=== PATIENT | female | born 1930 | race Caucasian/White ===

== ENCOUNTER 2018-04-14 04:56 | Inpatient (IN) | payer OTHER ==
[2018-04-14] MEDS ORDERED: LEVALBUTEROL 1.25 MG/3 ML NEB ONE (05:47)
[2018-04-14] MEDS ORDERED: ACETAMINOPHEN 500 MG TAB ONE (05:48)
[2018-04-14] MEDS ORDERED: NA CHLORIDE 0.9% 500 ML ONE ×3 (05:48→07:50)
[2018-04-14 06:14] LABS: Absolute Lymphocytes (CBC) 0.6 K/uL (0.7-4.9); Absolute Monocytes 1.1 K/uL (0.1-1.3); Absolute Neutrophil 15.5 K/uL (1.8-8.0); Basophils % 0.2 % (0-1.3); Eosinophils % 0.5 % (0-4.4); Hematocrit 36.8 % (36.0-45.0); Lymphocytes % 3.5 % (15.3-44.8); MPV 7.3 fL (7.6-11.3); Monocytes % 6.3 % (3.3-12.3); RBC Red Blood Cell Count 4.26 M/uL (3.86-4.86)
[2018-04-14 06:15] LABS: Protime INR 1.23
[2018-04-14 06:26] LABS: ALT/SGPT 13 U/L (12-78); AST/SGOT 16 U/L (15-37); Albumin 3.1 g/dL (3.4-5.0); Alkaline Phosphatase 124 U/L (45-117); BUN Blood Urea Nitrogen 24 mg/dL (7-18); Bicarbonate 26 mmol/L (21-32); Bilirubin Direct 0.2 mg/dL (0-0.2); Bilirubin Total 0.6 mg/dL (0.2-1.0); Glucose Level 126 mg/dL (74-106); Lipase 153 U/L (73-393); Potassium 4.6 mmol/L (3.5-5.1); Protein, Total 7.3 g/dL (6.4-8.2); Sodium Level 134 mmol/L (136-145); Troponin (Emerg Dept Use Only) < 0.02 ng/mL (0.0-0.045)
[2018-04-14 06:44] LABS: Blood Morphology Comment NOT SEEN (NOT SEEN); Platelet Estimate ADEQ; Urine White Blood Cell Casts OK
[2018-04-14 06:55] LABS: Urine Bacteria <20 /HPF (<20); Urine Culture Reflex Order NOT NEEDED; Urine RBC <5 /HPF (NONE SEEN)
[2018-04-14] MEDS ORDERED: NA CHLORIDE 0.9% 250 ML ONE (06:57)
[2018-04-14] MEDS ORDERED: CEFTRIAXONE/SWI 1gm 1 GM/10 ML SYR ONE (06:57)
[2018-04-14] MEDS ORDERED: AZITHROMYCIN 500 MG INJ IVPB ONE (06:57)
[2018-04-14 07:06] LABS: Urine Blood TRACE (NEG); Urine Glucose NEGATIVE (NEG); Urine Protein NEGATIVE (NEG); Urine pH 6.5 (5.0-7.0)
--- NOTE | 2018-04-14 07:46 | ER ---
Nurse's Notes [facility] Name: Rachele Sahu Age: 87 yrs Sex: Female : 1930 Arrival Date: 04/14/2018 Time: 05:02 Bed 4 Private MD: Diagnosis: acute pneumonia;cough;Left side pneumonia;Sepsis Presentation: 04/14 05:03 Presenting complaint: EMS states: Patient woke up with chills this morning; Has had lp1 cough, congestion for a few days, thought it was just sinus congestion; Complaint of nausea, relieved with 4mg Zofran IV by EMS. Transition of care: [facility]. Onset of symptoms was April 14, 2018. Risk Assessment: Do you want to hurt yourself or someone else? Patient reports no desire to harm self or others. Care prior to arrival: Medication(s) given: zofran 4 mg, IV initiated. 20 GA, in the left antecubital area. 05:03 Method Of Arrival: EMS: [facility] lp1 05:03 Acuity: OLAMIDE 3 lp1 05:03 Acuity: OLAMIDE 2 lp1 05:16 Initial Sepsis Screen: Does the patient have a suspected source of infection? Yes: lp1 Productive cough/pneumonia. 05:16 Initial Sepsis Screen: Does the patient meet any 2 criteria? RR > 20 per min. HR > 90 lp1 bpm. Yes. Historical: - Allergies: 05:09 Hydrocodone-Acetaminophen; lp1 - Home Meds: 05:09 Seroquel 50 mg Oral tab nightly [Active]; lp1 - PMHx: 05:09 Anxiety; Hypertension; lp1 - Immunization history:: Adult Immunizations unknown. - Ebola Screening: : No symptoms or risks identified at this time. - Social history:: Smoking status: unknown. - Family history:: not pertinent. - Hospitalizations: : No recent hospitalization is reported. Screenin:58 Abuse screen: Denies threats or abuse. Denies injuries from another. Nutritional lp1 screening: No deficits noted. Tuberculosis screening: No symptoms or risk factors identified. Fall Risk Total Armenta Fall Scale indicates High Risk Score (45 or more points). Fall prevention measures have been instituted. Side Rails Up X 2 As available patient and family educated on Fall Prevention Program and Strategies. Assessment: 05:11 General: Appears in no apparent distress. Behavior is calm, cooperative, appropriate ao for age. Pain: Denies pain. Neuro: Level of Consciousness is awake, alert, Oriented to person, place, time, situation, Moves all extremities. Full function Speech is normal, Facial symmetry appears normal. Cardiovascular: Heart tones S1 S2 Capillary refill < 3 seconds. Respiratory: Reports shortness of breath cough that is productive, hacking, Airway is patent Respiratory effort is even, unlabored, Respiratory pattern is regular, symmetrical. GI: Abdomen is non-distended. : No signs and/or symptoms were reported regarding the genitourinary system. EENT: No signs and/or symptoms were reported regarding the EENT system. Derm: Skin is intact, Skin is pink, warm \T\ dry. normal, Skin temperature is warm. Musculoskeletal: Circulation, motion, and sensation intact. Range of motion: limited in all extremities. 06:13 Reassessment: Patient appears in no apparent distress at this time. Patient and/or ao family updated on plan of care and expected duration. Pain level reassessed. 07:13 Reassessment: Patient appears in no apparent distress at this time. Patient and/or jl7 family updated on plan of care and expected duration. Pain level reassessed. Patient is alert, oriented x 3, equal unlabored respirations, skin warm/dry/pink. Patient denies pain at this time. 07:35 Reassessment: Dr. Sotelo made aware of BP, see MAR for orders. jl7 08:14 Reassessment: Dr. Sotelo ordered Levophed to maintain a MAP of 65. Pt's BP increased jl7 when she fully woke up and was sitting in bed. [facility] ordered to hold Levophed at this time. 08:55 Reassessment: Levophed started at 5 mcg/min. jl7 09:20 Reassessment: Levophed increased to 8 mcg/min. jl7 Vital Signs: 05:07 BP 183 / 62; Pulse 130; Resp 23; Temp 100.6(O); Pulse Ox 94% on R/A; Weight 44.91 kg lp1 (R); Height 4 ft. 11 in. (149.86 cm); Pain 0/10; 06:13 BP 91 / 44; Pulse 122; Resp 19; Temp 98.9(O); Pulse Ox 95% ; Pain 0/10; ao 06:41 Temp 98.9; ao 07:13 BP 102 / 48; Pulse 112; Resp 16 S; Pulse Ox 91% on R/A; Pain 0/10; jl7 07:35 BP 82 / 37; Pulse 104; Resp 14 S; Pulse Ox 87% on R/A; jl7 07:43 Pulse Ox 92% on 2 lpm NC; jl7 07:55 BP 86 / 37; Pulse 102; Resp 15 S; Pulse Ox 97% on 2 lpm NC; jl7 08:13 BP 104 / 50; Pulse 106; Resp 14 S; Pulse Ox 97% on 2 lpm NC; jl7 08:45 BP 71 / 30; Pulse 90; Resp 16 S; Pulse Ox 98% on 2 lpm NC; jl7 09:23 BP 85 / 39; Pulse 90; Resp 16 S; Pulse Ox 98% on 2 lpm NC; jl7 09:30 BP 102 / 46; Pulse 88; Resp 16 S; Pulse Ox 99% on 2 lpm NC; jl7 05:07 Body Mass Index 20.00 (44.91 kg, 149.86 cm) lp1 ED Course: 05:02 Patient arrived in ED. lp1 05:04 Yared Sotelo MD is Attending Physician. wa 05:07 Triage completed. lp1 05:07 Arm band placed on left wrist. lp1 05:09 Bed in low position. Side rails up X2. secured entrance monitor on. Pulse ox on. NIBP on. lp1 05:11 Justen Nair RN is Primary Nurse. ao 05:33 X-ray completed. Portable x-ray completed in exam room. Patient tolerated procedure kw well. 05:41 Chest Single View XRAY In Process Unspecified. EDMS 07:01 CT Chest Abdomen Pelvis W/O Contrast In Process Unspecified. EDMS 07:07 Report given to Daniel RN. ao 07:13 Inserted saline lock: 20 gauge in left forearm, using aseptic technique. Blood jl7 collected. Inserted by GABO Campuzano. 07:44 Beatriz Weems MD is Hospitalizing Provider. wa 08:56 Inserted saline lock: 20 gauge in right forearm, using aseptic technique. bp 10:01 No provider procedures requiring assistance completed. Patient admitted, IV remains in jl7 place. intact, No redness/swelling at site. Administered Medications: 05:48 Drug: Acetaminophen 1000 mg Route: PO; ao 06:41 Follow up: Temp 98.9 ao 05:48 Drug: Xopenex (3) 1.25 mg Route: Inhalation; ao 06:41 Follow up: Response: No adverse reaction ao 05:48 Drug: NS 0.9% 500 ml Route: IV; Rate: bolus; Site: left antecubital; ao 06:30 Follow up: Response: No adverse reaction; IV Status: Completed infusion; IV Intake: jl7 500ml 06:41 Follow up: IV Intake: 500ml ao 06:41 Drug: NS 0.9% 500 ml Route: IV; Rate: bolus; Site: left forearm; ao 07:35 Follow up: Response: No adverse reaction; IV Status: Completed infusion; IV Intake: jl7 500ml 07:01 Drug: Rocephin - (cefTRIAXone) 2 grams Route: IVPB; Infused Over: 30 mins; Site: left ao forearm; 07:03 Follow up: Response: No adverse reaction; IV Status: Completed infusion jl7 07:01 Drug: Zithromax 500 mg Route: IVPB; Infused Over: 1 hrs; Site: left forearm; ao 08:01 Follow up: Response: No adverse reaction; IV Status: Completed infusion jl7 07:41 Drug: NS 0.9% 500 ml Route: IV; Rate: bolus; Site: left forearm; jl7 08:18 Follow up: IV Status: Completed infusion; IV Intake: 500ml jl7 08:55 Drug: Levophed (4 mg/250 mL D5W 4 mcg/min {Note: Administration started at 5 mcg/min.} jl7 Route: IV; Rate: calculated rate; Site: left forearm; 10:04 Follow up: IV Status: Infusion continued upon admission jl7 Intake: 06:30 IV: 500ml; Total: 500ml. jl7 06:41 IV: 500ml; Total: 1000ml. ao 07:35 IV: 500ml; Total: 1500ml. jl7 08:18 IV: 500ml; Total: 2000ml. jl7 Outcome: 07:45 Decision to Hospitalize by Provider. wa 10:01 Admitted to ICU accompanied by nurse, accompanied by dimitrios, via stretcher, room 6, on jl7 monitor, with chart, Report called to GABO Helms 10:01 Condition: stable 10:01 Discharge instructions given to patient, Instructed on the need for admit, Demonstrated understanding of instructions. 10:03 Patient left the ED. jl7 Signatures: Dispatcher [employer] EDLyubov Guthrie Laura, GABO RN lp1 Justen Nair RN RN Raman Golden RN RN jl7 Yared Sotelo MD MD wa Peltier, Brian RN RN bp Corrections: (The following items were deleted from the chart) 06:59 05:16 Initial Sepsis Screen: Does the patient have a suspected source of infection? ao lp1
--- NOTE | 2018-04-14 07:46 | EDPHYS ---
Physician Documentation [facility] Name: Rachele Sahu Age: 87 yrs Sex: Female : 1930 Arrival Date: 04/14/2018 Time: 05:02 Bed 4 Private MD: ED Physician Yared Sotelo HPI: 04/14 06:48 This 87 yrs old Female presents to ER via EMS with complaints of Cough, wa Nausea. 06:48 The patient or guardian reports cough, difficulty breathing, congestion. chills. Onset: wa The symptoms/episode began/occurred 1 week(s) ago, states waxes and wanes. Severity of symptoms: At their worst the symptoms were moderate, in the emergency department the symptoms are actually worse. Modifying factors: The symptoms are alleviated by nothing, the symptoms are aggravated by coughing. Associated signs and symptoms: Pertinent positives: fever, nausea, Pertinent negatives: chest pain, diarrhea, ear ache, vomiting. The patient has experienced similar episodes in the past, a few times. The patient has not recently seen a physician. Historical: - Allergies: 05:09 Hydrocodone-Acetaminophen; lp1 - Home Meds: 05:09 Seroquel 50 mg Oral tab nightly [Active]; lp1 - PMHx: 05:09 Anxiety; Hypertension; lp1 - Immunization history:: Adult Immunizations unknown. - Ebola Screening: : No symptoms or risks identified at this time. - Social history:: Smoking status: unknown. - Family history:: not pertinent. - Hospitalizations: : No recent hospitalization is reported. ROS: 06:50 Eyes: Negative for injury, pain, redness, and discharge, ENT: Negative for injury, wa pain, and discharge, Neck: Negative for injury, pain, and swelling, Back: Negative for injury and pain, : Negative for injury, bleeding, discharge, and swelling, MS/Extremity: Negative for injury and deformity, Skin: Negative for injury, rash, and discoloration, Neuro: Negative for headache, weakness, numbness, tingling, and seizure, Psych: Negative for depression, anxiety, suicide ideation, homicidal ideation, and hallucinations. 06:50 Constitutional: Positive for chills, fatigue, fever, malaise, Negative for poor PO intake, weight loss. 06:50 Cardiovascular: Negative for chest pain, edema, orthopnea, palpitations. 06:50 Respiratory: Positive for cough, with white sputum, dyspnea on exertion, shortness of breath, at rest. Negative for hemoptysis, orthopnea. 06:50 Abdomen/GI: Positive for nausea. 06:50 All other systems are negative. Exam: 06:51 Head/Face: Normocephalic, atraumatic. Eyes: Pupils equal round and reactive to light, wa extra-ocular motions intact. Lids and lashes normal. Conjunctiva and sclera are non-icteric and not injected. Cornea within normal limits. Periorbital areas with no swelling, redness, or edema. ENT: Nares patent. No nasal discharge, no septal abnormalities noted. Tympanic membranes are normal and external auditory canals are clear. Oropharynx with no redness, swelling, or masses, exudates, or evidence of obstruction, uvula midline. Mucous membranes moist. Neck: Trachea midline, no thyromegaly or masses palpated, and no cervical lymphadenopathy. Supple, full range of motion without nuchal rigidity, or vertebral point tenderness. No Meningismus. Chest/axilla: Normal chest wall appearance and motion. Nontender with no deformity. No lesions are appreciated. Abdomen/GI: Soft, non-tender, with normal bowel sounds. No distension or tympany. No guarding or rebound. No evidence of tenderness throughout. Back: No spinal tenderness. No costovertebral tenderness. Full range of motion. Skin: Warm, dry with normal turgor. Normal color with no rashes, no lesions, and no evidence of cellulitis. MS/ Extremity: Pulses equal, no cyanosis. Neurovascular intact. Full, normal range of motion. Neuro: Awake and alert, GCS 15, oriented to person, place, time, and situation. Cranial nerves II-XII grossly intact. Motor strength 5/5 in all extremities. Sensory grossly intact. Cerebellar exam normal. Normal gait. Psych: Awake, alert, with orientation to person, place and time. Behavior, mood, and affect are within normal limits. 06:51 Constitutional: The patient appears alert, noted coughing intermittently with sputum production 06:51 Cardiovascular: Rate: tachycardic, Rhythm: regular, Pulses: no pulse deficits are appreciated, Heart sounds: normal, Edema: is not appreciated, JVD: is not appreciated. 06:51 Respiratory: mild respiratory distress is noted, Respirations: normal, Breath sounds: coarse at level of mid-lung and bilaterally, Respiratory rate: tachypneic Vital Signs: 05:07 BP 183 / 62; Pulse 130; Resp 23; Temp 100.6(O); Pulse Ox 94% on R/A; Weight 44.91 kg lp1 (R); Height 4 ft. 11 in. (149.86 cm); Pain 0/10; 06:13 BP 91 / 44; Pulse 122; Resp 19; Temp 98.9(O); Pulse Ox 95% ; Pain 0/10; ao 06:41 Temp 98.9; ao 07:13 BP 102 / 48; Pulse 112; Resp 16 S; Pulse Ox 91% on R/A; Pain 0/10; jl7 07:35 BP 82 / 37; Pulse 104; Resp 14 S; Pulse Ox 87% on R/A; jl7 07:43 Pulse Ox 92% on 2 lpm NC; jl7 07:55 BP 86 / 37; Pulse 102; Resp 15 S; Pulse Ox 97% on 2 lpm NC; jl7 08:13 BP 104 / 50; Pulse 106; Resp 14 S; Pulse Ox 97% on 2 lpm NC; jl7 08:45 BP 71 / 30; Pulse 90; Resp 16 S; Pulse Ox 98% on 2 lpm NC; jl7 09:23 BP 85 / 39; Pulse 90; Resp 16 S; Pulse Ox 98% on 2 lpm NC; jl7 09:30 BP 102 / 46; Pulse 88; Resp 16 S; Pulse Ox 99% on 2 lpm NC; jl7 05:07 Body Mass Index 20.00 (44.91 kg, 149.86 cm) lp1 MDM: 05:04 Patient medically screened. sc 06:53 Differential Diagnosis: Bronchitis Influenza Upper Respiratory Infection Pharyngitis wa Viral Syndrome Pneumonia. 06:53 Data reviewed: vital signs, nurses notes, lab test result(s), EKG, radiologic studies. sc Test interpretation: by ED physician or midlevel provider: EKG: HR 125. sinus tach. interp by me. nml axis. no acute ischemic changes or dysrhythmia noted. Response to treatment: the patient's symptoms have mildly improved after treatment. 06:54 ED course: spepsis? fluid bolus. eval for source. reassess. sc 06:58 Test interpretation: by ED physician or midlevel provider: labs noted for wbc 17.3 UA negative. f;u screen negative. CXR: chronic interstitial markings. . ED course: fluids given 30cc/kg. IV abx given. . 07:42 Physician consultation: Beatriz Weems MD. Admission orders: after a detailed discussion of the patient's condition and case, the admit orders are written by me. 04/14 05:20 Order name: Basic Metabolic Panel; Complete Time: 06:56 sc 04/14 06:56 Interpretation: GFR 63. 04/14 05:20 Order name: Blood Culture Adult (2) 04/14 05:20 Order name: CBC with Diff; Complete Time: 06:56 04/14 05:20 Order name: Lactate; Complete Time: 06:57 sc 04/14 05:20 Order name: LFT's; Complete Time: 06:57 sc 04/14 05:20 Order name: Lipase; Complete Time: 06:57 sc 04/14 05:20 Order name: Procalcitonin; Complete Time: 06:57 sc 04/14 05:20 Order name: Protime (+inr); Complete Time: 06:22 sc 04/14 05:20 Order name: Troponin (emerg Dept Use Only); Complete Time: 06:57 sc 04/14 05:20 Order name: Urine Microscopic Only; Complete Time: 06:57 sc 04/14 05:20 Order name: Chest Single View XRAY; Complete Time: 08:11 sc 04/14 05:20 Order name: Flu; Complete Time: 06:57 sc 04/14 06:33 Order name: CBC Smear Scan; Complete Time: 06:56 EDMS 04/14 06:58 Order name: Urine Dipstick--Ancillary (enter results); Complete Time: 07:34 eb 04/14 05:20 Order name: Cardiac monitoring; Complete Time: 05:48 wa 04/14 05:20 Order name: EKG - Nurse/Tech; Complete Time: 05:48 wa 04/14 05:20 Order name: IV Saline Lock - Large Bore; Complete Time: 05:49 wa 04/14 05:20 Order name: Labs collected and sent; Complete Time: 05:49 04/14 05:20 Order name: O2 Per Protocol; Complete Time: 05:49 04/14 05:20 Order name: O2 Sat Monitoring; Complete Time: 05:49 sc 04/14 06:23 Order name: CT Chest Abdomen Pelvis W/O Contrast; Complete Time: 08:10 sc 04/14 07:24 Order name: EKG Electrocardiogram [facility] 04/14 05:20 Order name: Urine Dipstick-Ancillary (obtain specimen); Complete Time: 06:42 sc Administered Medications: 05:48 Drug: Acetaminophen 1000 mg Route: PO; ao 06:41 Follow up: Temp 98.9 ao 05:48 Drug: Xopenex (3) 1.25 mg Route: Inhalation; ao 06:41 Follow up: Response: No adverse reaction ao 05:48 Drug: NS 0.9% 500 ml Route: IV; Rate: bolus; Site: left antecubital; ao 06:30 Follow up: Response: No adverse reaction; IV Status: Completed infusion; IV Intake: jl7 500ml 06:41 Follow up: IV Intake: 500ml ao 06:41 Drug: NS 0.9% 500 ml Route: IV; Rate: bolus; Site: left forearm; ao 07:35 Follow up: Response: No adverse reaction; IV Status: Completed infusion; IV Intake: jl7 500ml 07:01 Drug: Rocephin - (cefTRIAXone) 2 grams Route: IVPB; Infused Over: 30 mins; Site: left ao forearm; 07:03 Follow up: Response: No adverse reaction; IV Status: Completed infusion jl7 07:01 Drug: Zithromax 500 mg Route: IVPB; Infused Over: 1 hrs; Site: left forearm; ao 08:01 Follow up: Response: No adverse reaction; IV Status: Completed infusion jl7 07:41 Drug: NS 0.9% 500 ml Route: IV; Rate: bolus; Site: left forearm; jl7 08:18 Follow up: IV Status: Completed infusion; IV Intake: 500ml jl7 08:55 Drug: Levophed (4 mg/250 mL D5W 4 mcg/min {Note: Administration started at 5 mcg/min.} jl7 Route: IV; Rate: calculated rate; Site: left forearm; 10:04 Follow up: IV Status: Infusion continued upon admission jl7 Disposition: 04/14/18 07:45 Hospitalization ordered by Beatriz Weems for Inpatient Admission. Preliminary diagnosis are acute pneumonia, cough, Left side pneumonia, Sepsis. - Bed requested for Intensive Care Unit. - Status is Inpatient Admission. jl7 - Condition is Fair. - Problem is new. - Symptoms have improved. UTI on Admission? No Critical care time excluding procedures: 08:11 Critical care time: Bedside Care: 15 minutes, Consultation: 7 minutes, Family wa Intervention: 10 minutes. Total time: 32 minutes Signatures: Dispatcher [employer] EDMS Jes Cyr RN RN dw Pena, Laura, RN RN lp1 Justen Nair RN RN ao Marinas, Patrick, NP RADIO COMMENTATOR pm1 Raman Acosta RN RN jl7 Yared Sotelo MD MD sc Snow Meek Corrections: (The following items were deleted from the chart) 08:12 07:45 Hospitalization Ordered by Beatriz Weems MD for Inpatient Admission. Preliminary sc diagnosis is acute pneumonia; cough. Bed requested for Telemetry/MedSurg (Inpatient). Status is Inpatient Admission. Condition is Fair. Problem is new. Symptoms have improved. UTI on Admission? No. sc 08:12 08:12 04/14/2018 07:45 Hospitalization Ordered by Beatriz Weems MD for Inpatient sc Admission. Preliminary diagnosis is acute pneumonia; cough; Left side pneumonia; Sepsis. Bed requested for Telemetry/MedSurg (Inpatient). Status is Inpatient Admission. Condition is Fair. Problem is new. Symptoms have improved. UTI on Admission? No. sc 08:39 08:12 04/14/2018 07:45 Hospitalization Ordered by Beatriz Weems MD for Inpatient Admission. Preliminary diagnosis is acute pneumonia; cough; Left side pneumonia; Sepsis. Bed requested for Telemetry/MedSurg (Inpatient). Status is Inpatient Admission. Condition is Fair. Problem is new. Symptoms have improved. UTI on Admission? No. sc 09:31 08:39 04/14/2018 07:45 Hospitalization Ordered by Beatriz Weems MD for Inpatient Admission. Preliminary diagnosis is acute pneumonia; cough; Left side pneumonia; Sepsis. Bed requested for Telemetry/MedSurg (Inpatient). Status is Inpatient Admission. Condition is Fair. Problem is new. Symptoms have improved. UTI on Admission? No. 09:31 09:31 04/14/2018 07:45 Hospitalization Ordered by Beatriz Weems MD for Inpatient Admission. Preliminary diagnosis is acute pneumonia; cough; Left side pneumonia; Sepsis. Bed requested for Intensive Care Unit. Status is Inpatient Admission. Condition is Fair. Problem is new. Symptoms have improved. UTI on Admission? No. eb 10:03 09:31 04/14/2018 07:45 Hospitalization Ordered by Beatriz Weems MD for Inpatient jl7 Admission. Preliminary diagnosis is acute pneumonia; cough; Left side pneumonia; Sepsis. Bed requested for Intensive Care Unit. Status is Inpatient Admission. Condition is Fair. Problem is new. Symptoms have improved. UTI on Admission? No. dw
--- NOTE | 2018-04-14 08:08 | RAD REPORT ---
EXAM DESCRIPTION: CT - Chest Abd Pelvis Wo Con - 04/14/2018 7:01 am CLINICAL HISTORY: Chest pain, cough and congestion, abdominal pain COMPARISON: CT chest September 2015, CT September 2010 TECHNIQUE: Axial 5 millimeter thick images of the chest, abdomen and pelvis were obtained without IV contrast. No oral contrast administered. All CT scans are performed using dose optimization technique as appropriate and may include automated exposure control or mA/KV adjustment according to patient size. FINDINGS: There is a baseline interstitial fibrotic pattern present. Bilateral mild bronchial wall t hickening seen throughout the lung coyne. There is minimal alveolar ground-glass opacities present i n the lingula of the left upper lobe. In the mid and lower left lower lobe patchy areas of alveolar o pacification are present. No dense consolidation or air bronchogram formation. Minimal opacities are present in the right upper and right middle lobes. In the medial base of the right lower lobe there i s an 18 millimeter focal soft tissue density (image 47/104). This is new from the 2015 comparison. Th is is probably part of an infectious/inflammatory process but does warrant monitoring. No pneumothorax or pleural effusion. No chest wall mass or abnormal axillary lymphadenopathy seen. Mediastinal and hilar regions show no mass or lymphadenopathy. No significant cardiac finding. No p ericardial effusion. Patient has a large hiatal hernia with approximately 50% of the stomach intratho racic. The liver and spleen show no suspicious findings. Along the superior margin body the pancreas there i s a cluster of cystic masses present. These are not new. Assessment is somewhat limited in the absenc e of IV contrast. No associated calcification. No peripancreatic edema or stranding. Cholecystectomy clips are present. No biliary tree dilatation. No hydronephrosis present. No renal parenchymal calcifications. No calcifications in the pelvis or ca lices. Left-sided parapelvic cysts are present. Patient has multiple phleboliths along the pelvic rufina or. There several calcifications in the left-side of the abdomen and pelvis in proximity to the urete r. None are confirmed to be within the ureter. No new or progressive adrenal finding. Urinary bladder is contracted limiting assessment. Uterus is absent. Ovaries are absent or atrophic. No adnexal mass . No dilatation of the large or small bowel. Moderate stool volume throughout the colon. No active chandrakant l process identified. Other than the hiatal hernia, the stomach is unremarkable. Presence of the brenda ia distorts the stomach precluding accurate assessment of the proximal stomach dover for mass or chuck calos wall thickening. No free air, free fluid or inflammatory stranding. No hernia, mass or bulky lymphadenopathy. Very advanced bony degenerative changes are present but no acute or pathologic bone process seen. Den se vascular calcifications are present. IMPRESSION: CT chest shows patchy pneumonia changes in the left lower lobe and lingula of the left u pper lobe. An approximately 2 centimeter focal density in the medial gutter right lung base is probably an infec tious/inflammatory process is well. However, this finding needs ongoing monitoring to exclude a devel oping mass. No acute bowel finding identified. No acute GI process seen. Clustered cystic masses along the superior margin body of the pancreas are not new from prior imaging but there does appear to be some slight growth since 2016. Malignancy is not excluded. A benign etio logy is favored given the relatively minimal growth between 2010 and 2019. No acute finding identifiable. Isodense masses and pyelonephritis are not excluded. Patient has a large hiatal hernia with 50% of the stomach intrathoracic. This is not new. Proximal st omach is distorted in contour limiting accurate assessment of the gastric dover.
[2018-04-14] MEDS ORDERED: NOREPINEPHRINE 4mg/D5W 250mL 4 MG/250 ML BAG IV ONE (08:10)
--- NOTE | 2018-04-14 08:10 | RAD REPORT ---
EXAM DESCRIPTION: RAD - Chest Single View - 04/14/2018 5:41 am CLINICAL HISTORY: Cough and congestion COMPARISON: September 2015 TECHNIQUE: AP portable chest image was obtained 0530 hours . FINDINGS: Patient has chronic interstitial lung disease as a baseline. This is accentuated by a slig htly shallow inspiratory effort. Interstitial and patchy alveolar opacities are present in the mid an d lower left lung field. Mild patchy interstitial opacities present in the right lung field. Trachea is midline. Failure or volume overload are not suspected. There is no measurable mass or dense consol idation. Moderately large hiatal hernia is present and stable. Heart and vasculature are normal. No measurable pleural effusion and no pneumothorax. No acute bony abnormality seen. No acute aortic findings suspected. IMPRESSION: Left lower lung field pneumonia superimposed on fibrosis. Probable patchy right lower lung field pneumonia changes. Failure and volume overload are not suspected.
[2018-04-14] MEDS ORDERED: ONDANSETRON 4 MG/2 ML VIAL IV PRN (09:39)
--- NOTE | 2018-04-14 11:06 | P.HP ---
Certification for Inpatient Patient admitted to: Inpatient With expected LOS: >2 Midnights Patient will require the following post-hospital care: None Practitioner: I am a practitioner with admitting privileges, knowledge of patient current condition, hospital course, and medical plan of care. Services: Services provided to patient in accordance with Admission requirements found in Title 42 Section 412.3 of the Code of Federal Regulations Patient History Date of Service: 04/14/18 Primary Care Provider: Dr Romero Reason for admission: Failed Outpt Therapy History of Present Illness: This is a 87-year-old female with no significant medical history who presented to the ER complaining of having shortness of breath, cough, congestion, chills at the house. Subjective fevers as well. T-max of 100.6 at home. Patient stated that she has been sick for about 6 weeks with this cough and congestion. She went to her primary care doctor's office who prescribed her antibiotics and she took it for total of 14 days. Patient had no improvement and thus he prescribed her different antibiotics. Patient without any buttocks for total of 7 days without any improvement as well. Patient then noticed that she was starting to have a cyst in the back and thus general surgery saw her and remove this cyst outpatient. Patient stated that since the past 6 weeks she has not been able to get her cough and shortness of breath resolved. Even after taking antibiotics she has still been continued to have chills at the house. No other complaints to offer at this time. In the ER patient was in mild distress with respiratory rate of 36, requiring pressor for blood pressure support. Patient was thus admitted to the hospital after a chest x-ray and CT scan were concerning for possible right lower lobe pneumonia. Allergies codeine [Codeine] Allergy (Intermediate, Verified 10/04/15 04:41) Nausea/Vomiting Sulfa (Sulfonamide Antibiotics) [Sulfa(Sulfonamide Antibiotics)] Allergy ( Unknown, Verified 10/04/15 04:41) Hives hydr Allergy (Uncoded 10/06/16 19:11) Unknown Hydrocodone-Acetaminop Allergy (Uncoded 02/10/17 21:02) Unknown Home Medications: Quetiapine [Seroquel] 25 mg PO BEDTIME 04/14/18 - Past Medical/Surgical History Diabetic: No -: Lichen Planus -: Anxiety -: shingles -: Hysterectomy -: Appendectomy -: Cholecystectomy - Family History Family History: Reviewed- Non-Contributory - Social History Smoking Status: Never smoker Smoking therapy provided: No Patient receptive to therapy: No Alcohol use: No CD- Drugs: No Caffeine use: Yes Place of Residence: Home Review of Systems 10-point ROS is otherwise unremarkable Physical Examination - Vital Signs Temperature: 98.9 F Blood Pressure: 128/77 Pulse: 101 Respirations: 21 Pulse Ox (%): 95 - Physical Exam General: Alert, In no apparent distress HEENT: Atraumatic, PERRLA, Mucous membr. moist/pink, EOMI, Sclerae nonicteric Neck: Supple, 2+ carotid pulse no bruit, No LAD, Without JVD or thyroid abnormality Respiratory: Normal air movement, Expiratory wheezes, Inspiratory wheezes Cardiovascular: Regular rate/rhythm, Normal S1 S2 Gastrointestinal: Normal bowel sounds, No tenderness Musculoskeletal: No tenderness Integumentary: No rashes Neurological: Normal gait, Normal speech, Normal strength at 5/5 x4 extr, Normal tone, Normal affect Lymphatics: No axilla or inguinal lymphadenopathy - Studies Laboratory Data (last 24 hrs) 04/14/18 05:50: PT 14.4 H, INR 1.23 04/14/18 05:50: WBC 17.3 H, Hgb 12.5, Hct 36.8, Plt Count 287 04/14/18 05:50: Sodium 134 L, Potassium 4.6, BUN 24 H, Creatinine 0.85, Glucose 126 H, Total Bilirubin 0.6, AST 16, ALT 13, Alkaline Phosphatase 124 H, Lipase 153 Microbiology Data (last 24 hrs): 04/14/18 05:30 Nasopharnyx Influenza Type A Antigen Screen - Final 04/14/18 05:30 Nasopharnyx Influenza Type B Antigen Screen - Final Assessment and Plan - Problems (Diagnosis) (1) Sepsis Current Visit: Yes Status: Acute Plan: Sepsis with acute shock requiring pressors at this time. Most likely secondary to pneumonia. Failed outpatient therapy with Bactrim and Augmentin -currently patient is on Levophed. Will try to wean off and start patient on fluids -patient started on IV Levaquin at this time -sputum culture and blood culture pending at this time -will followup culture here and deescalate antibiotic Qualifiers: Sepsis type: sepsis due to unspecified organism Qualified Code(s): A41.9 - Sepsis, unspecified organism (2) PNA (pneumonia) Current Visit: Yes Status: Chronic Plan: CT scan with right lower lobe pneumonia. Failed outpatient therapy -was started on IV Levaquin at this time. Was given Bactrim and Augmentin outpatient -sputum cultures pending at this time -pulmonology consulted. Awaiting recommendations at this time Qualifiers: Pneumonia type: due to unspecified organism Laterality: right Lung location: lower lobe of lung Qualified Code(s): J18.1 - Lobar pneumonia, unspecified organism (3) HTN (hypertension) Current Visit: No Status: Chronic Qualifiers: Hypertension type: essential hypertension Discharge Plan: Home Plan to discharge in: Greater than 2 days - Advance Directives Does patient have a Living Will: Yes Does patient have a Durable POA for Healthcare: No - Code Status/Comfort Care Code Status Assessed: Yes Critical Care: Yes
[2018-04-14] MEDS: INSULIN -REGULAR HUMAN 50 UNIT/0.5 ML ML SQ SCH ×3 (11:30→20:43)
[2018-04-14] MEDS: Levofloxacin 750mg IV 750 MG/150 ML BAG IV SCH (11:36)
[2018-04-14] MEDS: NA CHLORIDE 0.9% 1,000 ML IV SCH (11:36)
[2018-04-14] MEDS ORDERED: NA CHLORIDE 0.9% 1,000 ML IV SCH (12:00)
--- NOTE | 2018-04-14 12:45 | P.CNS ---
Date of Consult: 04/14/18 Primary Care Provider: Dr Romero Chief Complaint: Shortness of breath chest congestion History of Present Illness: Patient is 87 years of age has been sick for 6 weeks with failed outpatient therapy with antibiotics started complaining of worsening congestion then sinus with shortness of breath ended up here in the hospital patient was little hypotensive i and Levophed has been tapered off no prior history of cardiopulmonary complaints patient is never smoked, does not drink alcohol no medications apart from a small dose of Seroquel at night patient lives in assisted living chest CT scan shows a patchy pneumonia on the left side Allergies codeine [Codeine] Allergy (Intermediate, Verified 10/04/15 04:41) Nausea/Vomiting Sulfa (Sulfonamide Antibiotics) [Sulfa(Sulfonamide Antibiotics)] Allergy ( Unknown, Verified 10/04/15 04:41) Hives hydr Allergy (Uncoded 10/06/16 19:11) Unknown Hydrocodone-Acetaminop Allergy (Uncoded 02/10/17 21:02) Unknown Home Medications: Quetiapine [Seroquel] 25 mg PO BEDTIME 04/14/18 - Past Medical/Surgical History Diabetic: No -: Lichen Planus -: Anxiety -: shingles -: Hysterectomy -: Appendectomy -: Cholecystectomy - Social History Smoking Status: Unknown if ever smoked Alcohol use: No CD- Drugs: No Caffeine use: Yes Place of Residence: Home Review of Systems 10-point ROS is otherwise unremarkable Physical Examination Temp Pulse Resp BP Pulse Ox 98.9 F 93 H 19 89/44 L 94 04/14/18 11:06 04/14/18 11:15 04/14/18 11:15 04/14/18 11:15 04/14/18 11:15 General: Alert, In no apparent distress, Oriented x3 HEENT: Atraumatic Neck: Supple Respiratory: Clear to auscultation bilaterally Cardiovascular: No edema, Regular rate/rhythm Gastrointestinal: Normal bowel sounds, Soft and benign Laboratory Data (last 24 hrs) 04/14/18 05:50: PT 14.4 H, INR 1.23 04/14/18 05:50: WBC 17.3 H, Hgb 12.5, Hct 36.8, Plt Count 287 04/14/18 05:50: Sodium 134 L, Potassium 4.6, BUN 24 H, Creatinine 0.85, Glucose 126 H, Total Bilirubin 0.6, AST 16, ALT 13, Alkaline Phosphatase 124 H, Lipase 153 - Problems (1) PNA (pneumonia) Current Visit: Yes Status: Chronic Plan: Patient is 87 years of age previously healthy admitted with a 6 week history of sinus and chest congestion. Failed outpatient therapy with antibiotics came and was also hypotensive no other significant medical history does not take anything apart from a small dose of Seroquel at night to sleep chest CT scan shows some patchy changes on the left side of bleed and pneumonia patient has been weaned off Seroquel blood cultures are pending is currently on IV fluids pro calcitonin level is negative also ordered some sinus x-rays patient is and I dose of levofloxacin not at risk for any resistant organisms serum cortisol level low-dose Decadron patient's white count is elevated Qualifiers: Pneumonia type: due to unspecified organism Laterality: right Lung location: lower lobe of lung Qualified Code(s): J18.1 - Lobar pneumonia, unspecified organism
[2018-04-14] MEDS: DEXAMETHASONE 4 MG TAB PO SCH ×2 (14:40→20:43)
--- NOTE | 2018-04-14 15:12 | RAD REPORT ---
EXAM DESCRIPTION: RAD - Sinus 3/+ Views - 04/14/2018 2:46 pm FINDINGS: Three view sinus series performed. Hazy opacification over each maxillary sinus would lashanda sonia diffuse mucosal thickening. No air-fluid level detected. No sclerotic or expansile bony change. Nasal septum is midline.
[2018-04-14] MEDS: ENOXAPARIN 40 MG/0.4 ML SQ SCH (17:38)
[2018-04-14] MEDS ORDERED: D50W 25 GM/50 ML SYRINGE IV PRN (18:04)
[2018-04-14] MEDS ORDERED: GLUCAGON 1 MG/VIAL IM PRN (18:04)
[2018-04-14] MEDS: QUETIAPINE 25 MG TAB PO SCH (20:42)
[2018-04-14] MEDS ORDERED: QUETIAPINE 25 MG TAB PO SCH (21:00)
--- NOTE | 2018-04-14 22:30 | EKG ---
Test Date: 2018-04-14 Test Time: 06:00:55 Student Financial Aid Manager: SAAD MEASUREMENT RESULTS: Intervals: Rate: 125 KS: 200 QRSD: 72 QT: 308 QTc: 444 [place]: P: [place]: 200 QRS: 62 T: 39 INTERPRETIVE STATEMENTS: Sinus tachycardia Otherwise normal ECG Compared to ECG 10/05/2015 05:28:32 Sinus bradycardia no longer present Sinus arrhythmia no longer present First degree AV block no longer present Electronically Signed On 04-14-18 22:28:00 [employer]OLOG[employer] by Antonio Lang
[2018-04-14] MEDS ORDERED: METHYLPREDNISOLONE 125 MG INJ IV STA (23:00)
[2018-04-15] MEDS: NA CHLORIDE 0.9% 1,000 ML IV SCH (03:51)
[2018-04-15 05:53] LABS: Absolute Lymphocytes (CBC) 0.5 K/uL (0.7-4.9); Absolute Monocytes 0.1 K/uL (0.1-1.3); Absolute Neutrophil 14.6 K/uL (1.8-8.0); Basophils % 0.1 % (0-1.3); Hematocrit 31.6 % (36.0-45.0); MPV 7.6 fL (7.6-11.3); Monocytes % 0.8 % (3.3-12.3)
[2018-04-15 06:06] VITALS: BMI 21.4
[2018-04-15 06:08] LABS: Albumin 2.4 g/dL (3.4-5.0); Bilirubin Total 0.2 mg/dL (0.2-1.0); Magnesium 2.1 mg/dL (1.8-2.4); Phosphorus 2.9 mg/dL (2.5-4.9); Protein, Total 6.1 g/dL (6.4-8.2)
[2018-04-15] MEDS: INSULIN -REGULAR HUMAN 50 UNIT/0.5 ML ML SQ SCH ×2 (07:30→11:30)
[2018-04-15] MEDS: DEXAMETHASONE 4 MG TAB PO SCH ×2 (08:40→22:34)
--- NOTE | 2018-04-15 10:13 | P.PN ---
Subjective Date of Service: 04/15/18 Primary Care Provider: Dr Romero Chief Complaint: Shortness of breath chest congestion Subjective: Improving (Patient is doing better is complaining of nasal symptoms nasal congestion no prior history) Review of Systems Unremarkable Physical Examination - Vital Signs Temperature: 97.8 F Blood Pressure: 118/50 Pulse: 98 Respirations: 23 Pulse Ox (%): 94 - Physical Exam General: Alert, Oriented x3 HEENT: Atraumatic Neck: Supple Respiratory: Clear to auscultation bilaterally Cardiovascular: No edema, Regular rate/rhythm - Studies Microbiology Data (last 24 hrs): 04/14/18 05:30 Nasopharnyx Influenza Type A Antigen Screen - Final 04/14/18 05:30 Nasopharnyx Influenza Type B Antigen Screen - Final Assessment & Plan - Problems (Diagnosis) (1) PNA (pneumonia) Current Visit: Yes Status: Chronic Plan: Patient is clinically doing 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 Cortisol level is normal continue with low-dose steroids can Dc IV fluids possible discharge on low-dose prednisone with a for Flonase cultures are negative Qualifiers: Pneumonia type: due to unspecified organism Laterality: right Lung location: lower lobe of lung Qualified Code(s): J18.1 - Lobar pneumonia, unspecified organism
[2018-04-15] MEDS: Levofloxacin 750mg IV 750 MG/150 ML BAG IV SCH (11:00)
[2018-04-15] MEDS: FLUTICASONE 50MCG NASAL SPRAY NAS SCH (11:11)
--- NOTE | 2018-04-15 11:33 | P.PN ---
Subjective Date of Service: 04/15/18 Primary Care Provider: Dr Romero Chief Complaint: Shortness of breath chest congestion Subjective: No C/O voiced, Tolerating diet, Ambulating, Improving, Doing well Review of Systems 10-point ROS is otherwise unremarkable Physical Examination - Vital Signs Temperature: 97.8 F Blood Pressure: 118/50 Pulse: 98 Respirations: 23 Pulse Ox (%): 94 - Physical Exam General: Alert, In no apparent distress HEENT: Atraumatic, PERRLA, EOMI Neck: Supple, JVD not distended Respiratory: Normal air movement, Rhonchi/gurgles Cardiovascular: Regular rate/rhythm, Normal S1 S2 Gastrointestinal: Normal bowel sounds, No tenderness Musculoskeletal: No tenderness Integumentary: No rashes Neurological: Normal speech, Normal tone, Normal affect Lymphatics: No axilla or inguinal lymphadenopathy - Studies Microbiology Data (last 24 hrs): 04/14/18 05:30 Nasopharnyx Influenza Type A Antigen Screen - Final 04/14/18 05:30 Nasopharnyx Influenza Type B Antigen Screen - Final Medications List Reviewed: Yes Assessment And Plan - Current Problems (Diagnosis) (1) Sepsis Current Visit: Yes Status: Acute Plan: Sepsis with acute shock requiring pressors at this time. Most likely secondary to pneumonia. Failed outpatient therapy with Bactrim and Augmentin -Patient weaned off levaphed now. BP stable now. DC fluids now -IV levaquin changed to PO now -sputum culture and blood culture pending at this time -will followup culture here and deescalate antibiotic Qualifiers: Sepsis type: sepsis due to unspecified organism Qualified Code(s): A41.9 - Sepsis, unspecified organism (2) PNA (pneumonia) Current Visit: Yes Status: Chronic Plan: CT scan with right lower lobe pneumonia. Failed outpatient therapy -Was given Bactrim and Augmentin outpatient -CAP guidelines for Post influenza patient to be treated with Levaquin 750mg IV which patient received yesterday. Switched to PO levaquin now with improvement in symptoms -sputum cultures pending at this time -pulmonology consulted. Qualifiers: Pneumonia type: due to unspecified organism Laterality: right Lung location: lower lobe of lung Qualified Code(s): J18.1 - Lobar pneumonia, unspecified organism (3) HTN (hypertension) Current Visit: No Status: Chronic Qualifiers: Hypertension type: essential hypertension Discharge Plan: Home Plan to discharge in: 48 Hours - Code Status/Comfort Care Code Status Assessed: Yes Critical Care: No
[2018-04-15] MEDS: levoFLOXacin 500 MG TAB PO SCH (12:27)
[2018-04-15] MEDS: ALBUTEROL 2.5 MG/3 ML NEB SOL NEB SCH ×2 (14:38→20:00)
[2018-04-15] MEDS: ENOXAPARIN 40 MG/0.4 ML SQ SCH (16:47)
[2018-04-15] MEDS: QUETIAPINE 25 MG TAB PO SCH (22:34)
[2018-04-16] MEDS: ALBUTEROL 2.5 MG/3 ML NEB SOL NEB SCH ×2 (02:00→07:50)
[2018-04-16 05:27] LABS: Absolute Lymphocytes (CBC) 0.5 K/uL (0.7-4.9); Absolute Monocytes 0.5 K/uL (0.1-1.3); Absolute Neutrophil 13.8 K/uL (1.8-8.0); Basophils % 0.2 % (0-1.3); Hematocrit 28.6 % (36.0-45.0); Lymphocytes % 3.4 % (15.3-44.8); MPV 7.3 fL (7.6-11.3); Monocytes % 3.4 % (3.3-12.3); RBC Red Blood Cell Count 3.27 M/uL (3.86-4.86)
[2018-04-16 06:01] LABS: Albumin 2.5 g/dL (3.4-5.0); Bilirubin Total 0.4 mg/dL (0.2-1.0); Potassium 4.7 mmol/L (3.5-5.1); Protein, Total 5.9 g/dL (6.4-8.2)
[2018-04-16] MEDS: DEXAMETHASONE 4 MG TAB PO SCH ×2 (09:29→21:18)
[2018-04-16] MEDS: FLUTICASONE 50MCG NASAL SPRAY NAS SCH (09:29)
[2018-04-16] MEDS: METOPROLOL TAR 25 MG TAB PO SCH ×2 (09:30→17:05)
[2018-04-16] MEDS: levoFLOXacin 500 MG TAB PO SCH (09:30)
--- NOTE | 2018-04-16 12:33 | P.PN ---
Subjective Date of Service: 04/16/18 Primary Care Provider: Dr Romero Chief Complaint: Shortness of breath chest congestion Patient seen and examined at bedside with RN. Chart reviewed. Case discussed with pulmonology. Overnight patient had episode of atrial fibrillation with RVR versus SVT with heart rate of 1 10-130. Patient however remained asymptomatic during that time. Patient states that she has not been able to sleep at night due to a lot of pressure moving around on the floor. Patient also is upset that she is not able to go home today. Review of Systems 10-point ROS is otherwise unremarkable Physical Examination - Vital Signs Temperature: 97.9 F Blood Pressure: 130/60 Pulse: 82 Respirations: 18 Pulse Ox (%): 95 - Physical Exam General: Alert, In no apparent distress HEENT: Atraumatic, PERRLA, EOMI Neck: Supple, JVD not distended Respiratory: Normal air movement, Expiratory wheezes, Inspiratory wheezes Cardiovascular: Normal S1 S2, Irregular heart rate/rhythm Gastrointestinal: Normal bowel sounds, No tenderness Musculoskeletal: No tenderness Integumentary: No rashes Neurological: Normal speech, Normal tone, Normal affect Lymphatics: No axilla or inguinal lymphadenopathy - Studies Medications List Reviewed: Yes Assessment And Plan - Current Problems (Diagnosis) (1) Sepsis Current Visit: Yes Status: Acute Plan: Sepsis with acute shock requiring pressors at this time. Most likely secondary to pneumonia. Failed outpatient therapy with Bactrim and Augmentin -hemodynamically stable -on p.o. Levaquin -sputum culture and blood culture pending at this time -will followup culture here and deescalate antibiotic Qualifiers: Sepsis type: sepsis due to unspecified organism Qualified Code(s): A41.9 - Sepsis, unspecified organism (2) PNA (pneumonia) Current Visit: Yes Status: Chronic Plan: CT scan with right lower lobe pneumonia. Failed outpatient therapy -Was given Bactrim and Augmentin outpatient -CAP guidelines for Post influenza patient to be treated with Levaquin 750mg IV which patient received yesterday. Switched to PO levaquin now with improvement in symptoms -sputum cultures pending at this time -pulmonology consulted. Qualifiers: Pneumonia type: due to unspecified organism Laterality: right Lung location: lower lobe of lung Qualified Code(s): J18.1 - Lobar pneumonia, unspecified organism (3) HTN (hypertension) Current Visit: No Status: Chronic Qualifiers: Hypertension type: essential hypertension (4) Tachycardia Current Visit: No Status: Acute Plan: Most likely secondary to albuterol versus stressful -patient switched from albuterol to Xopenex at this time -patient also asked to do stress relieving exercises then allowed to rest today Discharge Plan: Home Plan to discharge in: 24 Hours - Code Status/Comfort Care Code Status Assessed: Yes Critical Care: No
[2018-04-16] MEDS: LEVALBUTEROL 1.25 MG/3 ML NEB NEB SCH ×2 (13:40→20:00)
[2018-04-16] MEDS: ENOXAPARIN 40 MG/0.4 ML SQ SCH (17:04)
[2018-04-16] MEDS: QUETIAPINE 25 MG TAB PO SCH (22:16)
[2018-04-17] MEDS: LEVALBUTEROL 1.25 MG/3 ML NEB NEB SCH ×4 (02:00→20:05)
[2018-04-17 04:55] LABS: Absolute Lymphocytes (CBC) 0.6 K/uL (0.7-4.9); Absolute Monocytes 0.7 K/uL (0.1-1.3); Absolute Neutrophil 10.8 K/uL (1.8-8.0); Basophils % 0.1 % (0-1.3); Lymphocytes % 4.6 % (15.3-44.8); MPV 7.6 fL (7.6-11.3); Monocytes % 5.6 % (3.3-12.3); RBC Red Blood Cell Count 3.41 M/uL (3.86-4.86)
[2018-04-17 05:05] LABS: Albumin 2.7 g/dL (3.4-5.0); Bilirubin Total 0.2 mg/dL (0.2-1.0); Potassium 4.5 mmol/L (3.5-5.1); Protein, Total 6.1 g/dL (6.4-8.2)
--- NOTE | 2018-04-17 05:43 | P.PN ---
Date of Service: 04/17/18 Multiple episodes of SVT-nonsustained; increased lopressor dose
[2018-04-17] MEDS: METOPROLOL TAR 25 MG TAB PO SCH ×2 (05:47→17:41)
[2018-04-17] MEDS ORDERED: METOPROLOL TAR 25 MG TAB PO SCH ×2 (06:00)
[2018-04-17] MEDS: DEXAMETHASONE 4 MG TAB PO SCH ×2 (08:49→20:32)
[2018-04-17] MEDS: levoFLOXacin 500 MG TAB PO SCH (08:49)
[2018-04-17] MEDS: FLUTICASONE 50MCG NASAL SPRAY NAS SCH (08:58)
[2018-04-17] MEDS ORDERED: VANCOMYCIN/NS 1 gm 1 GM/250 ML BAG IV SCH (10:00)
[2018-04-17 14:17] LABS: Magnesium 2.2 mg/dL (1.8-2.4)
[2018-04-17] MEDS: ENOXAPARIN 40 MG/0.4 ML SQ SCH (17:41)
--- NOTE | 2018-04-17 17:58 | P.PN ---
Subjective Date of Service: 04/17/18 Primary Care Provider: Dr Romero Chief Complaint: Shortness of breath chest congestion Subjective: Improving SHE IS FEELING BETTER. DR NEGRO HAS GIVEN STEROIDS TO HER. SHE FAILED OP AUGMENTIN AND LEVAQUIN. WE JUST FOUND HER TO HAVE MRSA IN SPUTUM. SHE IS NOW ON VANCOMYCIN. THIS CAN BE A TRUE ORGANISM FOR HER SHE FAILED TO IMPROVE ON TWO ORAL ABX. Review of Systems 10-point ROS is otherwise unremarkable General: Weakness, Malaise Respiratory: Cough Physical Examination - Vital Signs Temperature: 97.8 F Blood Pressure: 156/76 Pulse: 78 Respirations: 18 Pulse Ox (%): 96 - Physical Exam General: Alert, Mild distress HEENT: Atraumatic, PERRLA, EOMI Neck: Supple, JVD not distended Respiratory: Clear to auscultation bilaterally, Normal air movement Cardiovascular: Regular rate/rhythm, Normal S1 S2 Gastrointestinal: Normal bowel sounds, No tenderness Musculoskeletal: No tenderness Integumentary: No rashes Neurological: Normal speech, Normal tone, Normal affect Lymphatics: No axilla or inguinal lymphadenopathy - Studies Medications List Reviewed: Yes Assessment And Plan - Current Problems (Diagnosis) (1) MRSA (methicillin resistant staphylococcus aureus) pneumonia Current Visit: Yes Status: Acute Plan: IV VANCOMYCIN PICC LINE IV ABX FOR 10 DAYS .
[2018-04-17] MEDS: QUETIAPINE 25 MG TAB PO SCH (20:31)
[2018-04-18] MEDS: LEVALBUTEROL 1.25 MG/3 ML NEB NEB SCH ×4 (02:00→21:00)
[2018-04-18] MEDS: METOPROLOL TAR 25 MG TAB PO SCH ×2 (05:25→17:16)
[2018-04-18 07:22] LABS: Absolute Monocytes 0.7 K/uL (0.1-1.3); Absolute Neutrophil 8.2 K/uL (1.8-8.0); Basophils % 0.2 % (0-1.3); Eosinophils % 0.1 % (0-4.4); Hematocrit 32.1 % (36.0-45.0); MPV 7.4 fL (7.6-11.3); Monocytes % 6.9 % (3.3-12.3); RBC Red Blood Cell Count 3.68 M/uL (3.86-4.86)
[2018-04-18 07:56] LABS: Anisocytosis 2+; Blood Morphology Comment NOTED (NOT SEEN); Platelet Estimate ADEQ; Urine White Blood Cell Casts OK
[2018-04-18] MEDS: FLUTICASONE 50MCG NASAL SPRAY NAS SCH (08:11)
[2018-04-18] MEDS: levoFLOXacin 500 MG TAB PO SCH (08:11)
[2018-04-18] MEDS: VANCOMYCIN/NS 1 gm 1 GM/250 ML BAG IV SCH (09:32)
--- NOTE | 2018-04-18 10:00 | RAD REPORT ---
EXAM DESCRIPTION: RAD - Chest Single View - 04/18/2018 12:19 am CLINICAL HISTORY: 7 years Female, PICC Placement COMPARISON: CT chest abdomen and pelvis without contrast dated April 14, 2018 FINDINGS: Appropriately placed upper extremity PICC terminating in the mid SVC. No focal lung consolidation. No pleural effusion. No pneumothorax. Cardiomegaly with venous congestion and interstitial edema. No acute osseous abnormality. IMPRESSION: Appropriately placed right upper extremity PICC. Cardiomegaly, interstitial edema and venous congestion. Multifocal pneumonia is not excluded. Electronically signed by: Tae Mars DO 04/18/2018 12:24 AM CONSTRUCTION ASSISTANT Due to temporary technical issues with the PACS/Fluency reporting system, reports are being signed by the in house radiologist as a courtesy to ensure prompt reporting. The interpreting radiologist is f ully responsible for the content of the report.
[2018-04-18] MEDS: CEFTAZIDIME IV SCH ×3 (12:53→23:45)
[2018-04-18] MEDS ORDERED: CEFTAZIDIME 1 GM VIAL IV SCH (17:00)
[2018-04-18] MEDS: ENOXAPARIN 40 MG/0.4 ML SQ SCH (17:14)
--- NOTE | 2018-04-18 18:11 | P.PN ---
Subjective Date of Service: 04/18/18 Primary Care Provider: Dr Romero Chief Complaint: Shortness of breath chest congestion Subjective: Improving SHE IS FEELING BETTER. DR NEGRO HAS GIVEN STEROIDS TO HER. SHE FAILED OP AUGMENTIN AND LEVAQUIN. WE JUST FOUND HER TO HAVE MRSA IN SPUTUM. SHE IS NOW ON VANCOMYCIN. THIS CAN BE A TRUE ORGANISM FOR HER SHE FAILED TO IMPROVE ON TWO ORAL ABX. SHE IS A LOT BETTER. DAUGHTER BEDSIDE. I ANSWERED A FEW QUESTIONS ABOUT PLAN. WE HAVE TO WAIT FOR [employer] TO APPROVE TWO ABX. Review of Systems 10-point ROS is otherwise unremarkable General: Weakness, Malaise Physical Examination - Vital Signs Temperature: 99 F Blood Pressure: 139/63 Pulse: 71 Respirations: 16 Pulse Ox (%): 96 - Physical Exam General: Alert, In no apparent distress, Cooperative, Cachectic HEENT: Atraumatic, PERRLA, EOMI Neck: Supple, JVD not distended Respiratory: Clear to auscultation bilaterally, Normal air movement Cardiovascular: Regular rate/rhythm, Normal S1 S2 Gastrointestinal: Normal bowel sounds, No tenderness Musculoskeletal: No tenderness Integumentary: No rashes Neurological: Normal speech, Normal tone, Normal affect Lymphatics: No axilla or inguinal lymphadenopathy - Studies Medications List Reviewed: Yes Assessment And Plan - Current Problems (Diagnosis) (1) MRSA (methicillin resistant staphylococcus aureus) pneumonia Current Visit: Yes Status: Acute Plan: IV VANCOMYCIN PICC LINE IV ABX FOR 10 DAYS . CLIINICALLY BETTER INTERMEDIATE S. TO VANCOMYCIN BUT IT HAS WORKED GREAT FOR HER. ADD FORTAZ FOR SECOND BACTERIA GROWING.
[2018-04-18] MEDS: QUETIAPINE 25 MG TAB PO SCH (23:44)
[2018-04-19] MEDS: LEVALBUTEROL 1.25 MG/3 ML NEB NEB SCH ×3 (02:00→13:05)
[2018-04-19] MEDS: METOPROLOL TAR 25 MG TAB PO SCH ×2 (05:21→15:01)
[2018-04-19] MEDS: FLUTICASONE 50MCG NASAL SPRAY NAS SCH (09:00)
[2018-04-19] MEDS: CEFTAZIDIME IV SCH ×2 (09:40→17:00)
--- NOTE | 2018-04-19 17:42 | P.DS ---
Admission Date: 04/14/18 Discharge Date: 04/19/18 Primary Care Provider: Dr Romero Disposition: TRANSFER TO [facility]USTODIAL Discharge Condition: FAIR Reason for Admission: Shortness of breath chest congestion - Problems (1) MRSA (methicillin resistant staphylococcus aureus) pneumonia Current Visit: Yes Status: Acute Hospital Course: MS. MONTANEZ COMES WITH SEPSIS, COUGH, CONGESTION WAS FOUND TO HAVE PNEUMONIA. SHE FAILED AUGMENTIN AND LEVAQUIN OUTPATIENT. SHE WAS FIRST GIVEN STEROIDS BY DR. NEGRO THINKING OF NON INFECTIOUS ETIOLOGY BUT LATER SHE GREW MRSA AND SO I ADDED VANCOMYCIN AND FORTAZ FOR ANOTHER BACTERIA THAT WAS NOT SENSITIVE TO LEVAQUIN. SHE IS DOING GREAT, HAS NO SYMPTOMS NOW. SHE WANTS TO STAY HERE FOR 10 DAYS OF ANTIBIOTICS. I EXPLAINED TO HER THAT WHEN PATIENT IS STABLE FOR OUTPATIENT CARE WE HAVE TO DISCHARGE AND SEND HER TO LOWER LEVEL OF CARE PER MEDICARE AND HOSPITAL HOSPITAL DEPENDS ON DRG. BOTH HER AND DAUGHTER WERE NOT HAPPY. I TOLD THEM THAT IT IS NOT A DOCTOR'S DECISION TO LET PATIENTS STAY FOR 2 WEEKS IN THE HOSPITAL EVEN IF THE PATIENT IS TOTALLY ASYMPTOMATIC. DAUGHTER HAD MORE QUESTIONS ABOUT HOW SECOND BACTERIA SHOWED UP. I EXPLAINED TO HER HOW CULTURE IS DONE ON YUNG DISH AND THEN SENSITIVITY IS TESTED TO SEE WHAT ANTIBIOTIC WILL WORK. SHE ALSO HAD QUESTION IF I CAN FINISH ANTIBIOTICS FASTER SO SHE CAN DO HOME AND NOT TO NH. I SAID NO. SHE SAYS IT IS DIFFICULT TO CONVINCE MOTHER FOR NH BUT SHE WILL TRY. I ALSO ASKED ASSISTANT PROSECUTING ATTORNEY TO EXPLAIN HOW DRG, CMS AND HOSPITAL STAYS WORK. Vital Signs/Physical Exam: Temp Pulse Resp BP Pulse Ox 97.1 F 65 18 140/60 98 04/19/18 16:00 04/19/18 16:00 04/19/18 16:00 04/19/18 16:00 04/19/18 16:00 General: Alert, In no apparent distress HEENT: Atraumatic, PERRLA, EOMI Neck: Supple, JVD not distended Respiratory: Clear to auscultation bilaterally, Normal air movement Cardiovascular: Regular rate/rhythm, Normal S1 S2 Gastrointestinal: Normal bowel sounds, No tenderness Musculoskeletal: No tenderness Integumentary: No rashes Neurological: Normal speech, Normal tone, Normal affect Lymphatics: No axilla or inguinal lymphadenopathy Laboratory Data at Discharge: WBC 9.9 K/uL (4.3-10.9) D 04/18/18 06:57 Hgb 10.7 g/dL (12.0-15.0) L 04/18/18 06:57 Hct 32.1 % (36.0-45.0) L 04/18/18 06:57 Plt Count 298 K/uL (152-406) 04/18/18 06:57 PT 14.4 SECONDS (9.5-12.5) H 04/14/18 05:50 INR 1.23 04/14/18 05:50 Sodium 138 mmol/L (136-145) 04/17/18 03:48 Potassium 4.5 mmol/L (3.5-5.1) 04/17/18 03:48 BUN 35 mg/dL (7-18) H 04/17/18 03:48 Creatinine 0.91 mg/dL (0.55-1.3) 04/18/18 06:57 Glucose 154 mg/dL (74-106) H 04/17/18 03:48 Phosphorus 2.9 mg/dL (2.5-4.9) 04/15/18 04:59 Magnesium 2.2 mg/dL (1.8-2.4) 04/17/18 10:10 Total Bilirubin 0.2 mg/dL (0.2-1.0) 04/17/18 03:48 AST 15 U/L (15-37) 04/17/18 03:48 ALT 17 U/L (12-78) 04/17/18 03:48 Alkaline Phosphatase 95 U/L (45-117) 04/17/18 03:48 Lipase 153 U/L (73-393) 04/14/18 05:50 Home Medications: Quetiapine [Seroquel*] 50 mg PO BEDTIME 04/14/18 Metoprolol Tartrate [Lopressor*] 25 mg PO Q12HR 6AM AND 6PM tab 04/19/18 Patient Discharge Instructions: [facility] TO CONTINUE ANTIBIOTICS RX GIVEN. THEY CAN CALL ME IF ANY CLARIFICATIONS NEEDED. Diet: Regular
[2018-04-19] MEDS: ENOXAPARIN 40 MG/0.4 ML SQ SCH (17:54)
--- NOTE | 2018-04-19 19:09 | EKG ---
Test Date: 2018-04-19 Test Time: 15:06:59 Raw Stock Dyeing Machine Tender: DENISHA MEASUREMENT RESULTS: Intervals: Rate: 74 CT: 210 QRSD: 76 QT: 364 QTc: 404 [place]: P: 61 CT: 210 QRS: 49 T: 39 INTERPRETIVE STATEMENTS: Sinus rhythm with 1st degree AV block Cannot rule out Anterior infarct, age undetermined Abnormal ECG Compared to ECG 04/14/2018 06:00:55 First degree AV block now present Myocardial infarct finding now present Sinus tachycardia no longer present Electronically Signed On 04-19-18 19:08:10 THERMOMETER MAKER by Jorge Luis Cantrell
[2018-04-19] MEDS: QUETIAPINE 25 MG TAB PO SCH (20:37)
[2018-04-19] MEDS: METOPROLOL TAR 50 MG TAB PO SCH (20:38)
[2018-04-19] MEDS: VANCOMYCIN/NS 1 gm 1 GM/250 ML BAG IV SCH (20:39)
[2018-04-20] MEDS: CEFTAZIDIME IV SCH ×2 (00:20→09:07)
[2018-04-20] MEDS: METOPROLOL TAR 50 MG TAB PO SCH (06:00)
[2018-04-20] MEDS ORDERED: METOPROLOL TAR 25 MG TAB PO ONE (06:42)
[2018-04-20] MEDS: FLUTICASONE 50MCG NASAL SPRAY NAS SCH (09:09)
--- NOTE | 2018-04-20 10:39 | CON ---
Date of Consultation: 04/20/2018 The patient was admitted on 04/14/2018 for sepsis. We saw the patient on 04/20/2018 because of atria l tachycardia. Admitting Physician: Keo Romero M.D. Consulting Physician: Antonio Lang M.D. History Of Present Illness: Ms. Sahu is an 87-year-old woman with history of anxiety and hyperte nsion, only takes Seroquel at home, admitted with sepsis on 04/14/2018. While she was here on teleme try, she had an episode of tachycardia that appears to be most likely an atrial flutter. No cardiac symptoms reported. Past Medical History: As stated above. Allergies: INCLUDE SULFA AND CODEINE. Review of Systems: Negative. Social History: Negative. Family History: Negative. Physical Examination: Vital Signs: Stable. Afebrile. Sinus rhythm. HEENT: Negative. Neck: Supple with no bruit. Chest: Clear to auscultation and percussion. Cardiac: Revealed a regular rhythm and rate. No murmurs, gallops, or rubs. Abdomen: Benign. Extremities: Revealed no clubbing, cyanosis, or edema. Diagnostic Data: Fairly unremarkable except for what was mentioned above. Impression And Plan: 1.Atrial flutter. 2.History of hypertension. 3.History of anxiety. 4.Sepsis. I agree with the use of metoprolol and Lovenox. I will leave it up to Dr. Romero's if he wants to use long-term anticoagulation. I think an echocardiogram is reasonable to get. ROSEANNE/DANIELE Voice ID: [id number] Report ID: [id number]
[2018-04-20 11:08] VITALS: O2SAT 93
--- NOTE | 2018-04-20 13:00 | P.DS ---
Admission Date: 04/14/18 Discharge Date: 04/20/18 Primary Care Provider: Dr Romero Disposition: TRANSFER TO [facility] Discharge Condition: FAIR Reason for Admission: Shortness of breath chest congestion - Problems (1) MRSA (methicillin resistant staphylococcus aureus) pneumonia Current Visit: Yes Status: Acute Hospital Course: MS. MONTANEZ COMES WITH SEPSIS, COUGH, CONGESTION WAS FOUND TO HAVE PNEUMONIA. SHE FAILED AUGMENTIN AND LEVAQUIN OUTPATIENT. SHE WAS FIRST GIVEN STEROIDS BY DR. NEGRO THINKING OF NON INFECTIOUS ETIOLOGY BUT LATER SHE GREW MRSA AND SO I ADDED VANCOMYCIN AND FORTAZ FOR ANOTHER BACTERIA THAT WAS NOT SENSITIVE TO LEVAQUIN. SHE IS DOING GREAT, HAS NO SYMPTOMS NOW. SHE WANTS TO STAY HERE FOR 10 DAYS OF ANTIBIOTICS. I EXPLAINED TO HER THAT WHEN PATIENT IS STABLE FOR OUTPATIENT CARE WE HAVE TO DISCHARGE AND SEND HER TO LOWER LEVEL OF CARE PER MEDICARE AND HOSPITAL HOSPITAL DEPENDS ON DRG. BOTH HER AND DAUGHTER WERE NOT HAPPY. I TOLD THEM THAT IT IS NOT A DOCTOR'S DECISION TO LET PATIENTS STAY FOR 2 WEEKS IN THE HOSPITAL EVEN IF THE PATIENT IS TOTALLY ASYMPTOMATIC. DAUGHTER HAD MORE QUESTIONS ABOUT HOW SECOND BACTERIA SHOWED UP. I EXPLAINED TO HER HOW CULTURE IS DONE ON YUNG DISH AND THEN SENSITIVITY IS TESTED TO SEE WHAT ANTIBIOTIC WILL WORK. SHE ALSO HAD QUESTION IF I CAN FINISH ANTIBIOTICS FASTER SO SHE CAN DO HOME AND NOT TO NH. I SAID NO. SHE SAYS IT IS DIFFICULT TO CONVINCE MOTHER FOR NH BUT SHE WILL TRY. I ALSO ASKED UTILITY SYSTEM OPERATOR TO EXPLAIN HOW DRG, CMS AND HOSPITAL STAYS WORK. MS. MONTANEZ IS VERY STABLE. SHE HAD EPISODE OF ASYMPTOMATIC TACHYCARDIA LAST PM. THIS WAS A. FLUTTER PER DR RENE. I STOPPED HER NEBULIZER RX THAT MAY TRIGGER IT AT THE SAME TIME AGE IS A FACTOR. SHE IS ALREADY ON B JERRY AND RATE IS 50 NOW. SHE WILL FU WITH DR. RENE. AND MY OFFICE IN 10 DAYS. Vital Signs/Physical Exam: Temp Pulse Resp BP Pulse Ox 98.3 F 53 18 142/60 H 93 04/20/18 08:00 04/20/18 08:00 04/20/18 08:00 04/20/18 08:00 04/20/18 08:00 Laboratory Data at Discharge: WBC 9.9 K/uL (4.3-10.9) D 04/18/18 06:57 Hgb 10.7 g/dL (12.0-15.0) L 04/18/18 06:57 Hct 32.1 % (36.0-45.0) L 04/18/18 06:57 Plt Count 298 K/uL (152-406) 04/18/18 06:57 PT 14.4 SECONDS (9.5-12.5) H 04/14/18 05:50 INR 1.23 04/14/18 05:50 Sodium 138 mmol/L (136-145) 04/17/18 03:48 Potassium 4.5 mmol/L (3.5-5.1) 04/17/18 03:48 BUN 35 mg/dL (7-18) H 04/17/18 03:48 Creatinine 0.77 mg/dL (0.55-1.3) 04/19/18 19:50 Glucose 154 mg/dL (74-106) H 04/17/18 03:48 Phosphorus 2.9 mg/dL (2.5-4.9) 04/15/18 04:59 Magnesium 2.2 mg/dL (1.8-2.4) 04/17/18 10:10 Total Bilirubin 0.2 mg/dL (0.2-1.0) 04/17/18 03:48 AST 15 U/L (15-37) 04/17/18 03:48 ALT 17 U/L (12-78) 04/17/18 03:48 Alkaline Phosphatase 95 U/L (45-117) 04/17/18 03:48 Lipase 153 U/L (73-393) 04/14/18 05:50 Home Medications: Quetiapine [Seroquel*] 50 mg PO BEDTIME 04/14/18 Metoprolol Tartrate [Lopressor*] 25 mg PO Q12HR 6AM AND 6PM tab 04/19/18 Doxycycline Hyclate 100 mg PO BID #14 tablet 04/20/18 New Medications: Doxycycline Hyclate 100 mg PO BID #14 tablet Patient Discharge Instructions: [facility] TO CONTINUE ANTIBIOTICS RX GIVEN. THEY CAN CALL ME IF ANY CLARIFICATIONS NEEDED. Diet: Regular Followup: Keo Romero MD [ACTIVE - CAN ADMIT] -
[2018-04-20 14:00] VITALS: BP 129/62; TEMP 99.2
== END 2018-04-20 14:56 | DRG 871 ==
LOC: ER 04:56 → ERHOLD 08:30 → OBSVTOIN 08:30 → 3RD-ICU 09:43 → 4TH 04-15 14:11
PROVIDERS: ADMIT Family Medicine; ATTEND Internal Medicine
PROC: 02HV33Z Insertion of Infusion Device into Superior Vena Cava, Percutaneous Approach (ICD-10-PCS; principal; 2018-04-17)
PROC: B548ZZA Ultrasonography of Superior Vena Cava, Guidance (ICD-10-PCS; 2018-04-17)
DX: A41.9 Sepsis, unspecified organism (principal); J15.212 Pneumonia due to Methicillin resistant Staphylococcus aureus; R65.21 Severe sepsis with septic shock; Z88.5 Allergy status to narcotic agent; Z88.2 Allergy status to sulfonamides; F41.9 Anxiety disorder, unspecified
CPT/HCPCS: 36415; 70220; 71045; 71250; 74176; 80048; 80053; 80076; 80202; 81003; 81015; 82533; 82565; 82962; 83605; 83690; 83735; 84100; 84145; 84484; 85025; 85610; 87040; 87070; 87077; 87186; 87205; 87804; 93005; 94640; 96361; 96365; 96367; 96375; 99285; J0456; J0696; J0713; J1650; J2930; J3370; J7030

== ENCOUNTER 2018-12-15 06:35 | Day surgery (SDC) | payer OTHER ==
[2018-12-14 15:16] LABS: Absolute Lymphocytes (CBC) 1.3 K/uL (0.7-4.9); Basophils % 0.3 % (0-1.3); Hematocrit 35.3 % (36.0-45.0); MPV 7.6 fL (7.6-11.3); RBC Red Blood Cell Count 4.11 M/uL (3.86-4.86)
[2018-12-14 15:30] LABS: Potassium 5.2 mmol/L (3.5-5.1)
[2018-12-15] MEDS ORDERED: Ringers Lactate 1,000 ML IV ONE (06:40)
[2018-12-15] MEDS ORDERED: CEFAZOLIN/SWI 1gm 1 GM/10 ML SYR ONE (06:40)
[2018-12-15] MEDS ORDERED: LIDOCAINE 1% MPF 5 ML VIAL ONE (06:59)
[2018-12-15] MEDS ORDERED: FENTANYL CITR 100 MCG/2 ML ONE (06:59)
[2018-12-15] MEDS ORDERED: PROPOFOL 200 MG/20 ML VIAL IV ONE (06:59)
[2018-12-15] MEDS ORDERED: BUPIVACAINE 0.5% PF 10 ML VIAL ONE (07:37)
[2018-12-15] MEDS ORDERED: KETOROLAC 30 MG/ML INJ ONE (07:43)
[2018-12-15] MEDS ORDERED: ONDANSETRON 4 MG/2 ML VIAL ONE (07:50)
[2018-12-15] MEDS ORDERED: NS 0.9% VIAL 10 ML ONE (07:51)
[2018-12-15] MEDS ORDERED: EPHEDRINE SULF 50 MG/ML VIAL ONE (07:51)
[2018-12-15] MEDS ORDERED: BUPIVACAINE 0.25% PF 10 ML VIAL ONE (07:54)
[2018-12-15 08:51] VITALS: TEMP 97
[2018-12-15 12:05] VITALS: BP 109/33; O2SAT 99
--- NOTE | 2018-12-15 20:04 | OP ---
Date of Procedure: 12/15/2018 Surgeon: Ga Hilliard MD Preoperative Diagnosis: Back mass. Postoperative Diagnosis: Back mass with skin tag nearby. Procedure Performed: Wide excision of back mass 5 x 3 cm with layered closure and excision skin tag. Estimated Blood Loss: Minimal. Specimen: Sebaceous cyst and skin tag. Findings: As above. Anesthesia: MAC. Complications: None. Disposition: Patient tolerated the procedure in stable condition, taken to Recovery in good general condition. Procedure In Detail: Patient was brought to the OR and placed in supine position. MAC anesthesia wa s begun. The patient was prepped and draped in the usual sterile fashion in the left lateral positio n. Marcaine 0.5% was infiltrated locally. There was a skin tag next to the sebaceous cyst which was excised with cautery, bleeding controlled with cautery, and then 5 x 3 cm incision made. The entire cyst wall and contents excised, sent to Pathology as specimen. Wound irrigated. Bleeding controlle d with cautery. Flaps created. 2-0 chromic used to approximate the subcutaneous tissue and 3-0 nylo n used to close skin. Sterile dressing was applied. The patient was awakened and taken to Recovery in good general condition. Discharge Note: Patient will go to Day Surgery, then home when stable. Disposition: Home. Condition: Stable. Discharge Instructions: Resume home medications and diet. Activity as tolerated. No heavy lifting. Remove outer dressing in 2 days. Shower. Keep the wound clean and dry. Follow up in my office in 2 weeks. Call for appointment. Ultracet 1 tablet p.o. q.4 p.r.n. pain, Keflex 500 mg p.o. q.6. /MODL Voice ID: [id number] Report ID: [id number]
--- OUTSIDE RECORDS SUMMARY | 2018-12-24 19:08 | XMS REPORT ---
:1930 Author Organization [facility] Address [address] [place] [address] Care Team Providers Name Role Phone Unavailable Unavailable Unavailable Payers Payer Name Policy Type Policy Number Effective Date Expiration Date Problems This patient has no known problems. Allergies, Adverse Reactions, Alerts Allergy Allergy Status Severity Reaction(s) Onset Inactive Treating Comments Name Type Date Date Clinician No Known DA Active U 2018-09 Allergies - 00:00:0 0 No Known DA Active U 2018-09 Allergies - 00:00:0 0 Medications This patient has no known medications. Results Test Description Test Time Test Comments Text Results Atomic Results Result Comments SURG 2018-11-27 RUN 14:40:00 DATE: 11/27/18 [facility] PAGE 1 RUN TIME: 1440 Specimen Inquiry RUN USER: INTERFACE JUNIOR ENT: MARICHUY MONTANEZ LOC: WONG Robertson #: [id number] AGE/SX: 88/F [facility] RE[facility]REG DR: Manny Moser III : [birth year] BED: 1 DIS: 11/25/18 STATUS: DIS Patrick TLOC: SPEC #: [id number] RECD: 11/24/18 STATUS: DARRICK REQ #: [id number] CHAO: 11/24/[address] [facility] [address]: Manny Moser III, MD ENTERED: 11/24/18 SP TYPE: SURG OTHR DR: Keo Romero MD ORDERED: SURG PATH LVL 3 COPIES TO: Keo Romero MD [address] [place] [address] [place] [address] [facility] [address] [place] [address] HISTOLOGY: TISSUE ID BLK PCS VALERIE LEV PROCEDURE DISPOSITION __ ____ ___ ___ ___ NASAL TURBINATE A 1 1 PROCEDURES: SURG PATH LVL 3 (11/24/18) TISSUES: A. NASAL TURBINATE, NOS - SINUS AND TURBINATES CLINICAL HISTORY SINUSITIS 4 SINUSES; PANSINUSITIS -J324 CPT CODES CPT CODE(S): 81642 , , , , , , FINAL DIAGNOSIS Nasal cavity, sinus and turbinates, endoscopic sinus surgery and turbinectomy: SINUS CONTENTS CONSISTENT WITH TURBINATE GROSS DESCRIPTION Sinus and turbinates. Received in formalin is a fragment of andre rubbery tissue, 3.0 x 1.0 x 0.6 cm. Additionally received are multiple irregular fragments of andre- brown soft tissue admixed with dark brown blood clots, 4.0 x 3.0 x 0.8 cm in aggregate. The rubbery tissue is sectioned, the cut surface is soft with a portion of bone at the core. The multiple small fragments are grossly unremarkable. Medical Consultant sections of the rubbery tissue with bone CONTINUED ON NEXT PAGE RUN DATE: 11/27/18 [facility] PAGE 2 RUN TIME: 1440 Specimen Inquiry RUN USER: INTERFACE SPEC #: [facility]:[id number] PATIENT: MARICHUY MONTANEZ # [id number] (Continued) ------- GROSS DESCRIPTION (Continued) submitted following labeled A1, multiple small soft tissue fragments in A2. ba/nr Grossing performed at [facility] Pathology, [facility] [facility], [address], [place] [address]. Seating Upholsterer: Adan Khan M.D. MICROSCOPIC DESCRIPTION Sinus and turbinates. Fragments of respiratory epithelium lined mucosa. There are benign mucus glands and a chronic inflammatory infiltrate. There is also squamous metaplasia and rare multinucleated foreign body giant cells identified. Fragments of unremarkable cartilage and bone present. No evidence of malignancy. /cm Signed SIGNATURE ON FILE Jens Paredes 1440 END OF REPORT PROTHROMBIN TIME 2018-11-24 07:03:00 Test Item Value Reference Range Comments PT PATIENT (test code=PTP) 12.8 SECONDS 9.3-12.9 INTERNATIONAL NORMAL RATIO (test code=INR) 1.11 INR Unit 0.8-1.2 THROMBOPLASTIN TIME [id number] 07:03:00 Test Item Value Reference Range Comments THROMBOPLASTIN TIME PARTIAL (test code=PTT) 31.9 SECONDS 26-35 BASIC METABOLIC [id number] 06:51:00 Test Item Value Reference Range Comments SODIUM (test code=NA) 135 mmol/L 134-147 POTASSIUM (test code=K) 4.1 mmol/L 3.4-5.0 CHLORIDE (test code=CL) 100 mmol/L 100-108 CARBON DIOXIDE (test code=CO2) 27 mmol/L 21-32 ANION GAP (test code=GAP) 8.0 GAP calc 4.0-15.0 GLUCOSE (test code=GLU) 95 MG/DL 70-110 BLOOD UREA NITROGEN (test code=BUN) 24 MG/DL 7-18 GLOMERULAR FILTRATION RATE (test >=60 max estimate estGFR >60 code=GFR) CREATININE (test code=CREAT) 0.9 MG/DL 0.6-1.0 CALCIUM (test code=CA) 8.8 MG/DL 8.5-10.1 BASIC METABOLIC [id number] 06:44:00 Test Item Value Reference Range Comments SODIUM (test code=NA) 135 mmol/L 134-147 POTASSIUM (test code=K) 4.1 mmol/L 3.4-5.0 CHLORIDE (test code=CL) 100 mmol/L 100-108 CARBON DIOXIDE (test code=CO2) 27 mmol/L 21-32 ANION GAP (test code=GAP) 8.0 GAP calc 4.0-15.0 GLUCOSE (test code=GLU) 95 MG/DL 70-110 BLOOD UREA NITROGEN (test code=BUN) 24 MG/DL 7-18 GLOMERULAR FILTRATION RATE (test code=GFR) estGFR >60 CREATININE (test code=CREAT) MG/DL 0.6-1.0 CALCIUM (test code=CA) 8.8 MG/DL 8.5-10.1 CBC W/AUTO [id number] 06:40:00 Test Item Value Reference Range Comments WHITE BLOOD CELL (test code=WBC) 8.8 K/mm3 3.5-11.0 RED BLOOD CELL (test code=RBC) 4.21 M/mm3 4.70-6.10 HEMOGLOBIN (test code=HGB) 12.3 G/DL 10.4-14.9 HEMATOCRIT (test code=HCT) 36.7 % 31.5-44.1 MEAN CELL VOLUME (test code=MCV) 87.2 Fl 84.5-98.6 MEAN CELL HGB (test code=MCH) 29.2 pg 27.0-34.2 MEAN CELL HGB CONCETRATION (test code=MCHC) 33.5 G/DL 31.5-34.0 RED CELL DISTRIBUTION WIDTH (test code=RDW) 12.7 SD 11.5-14.5 PLATELET COUNT (test code=PLT) 275.0 K/mm3 150-450 MEAN PLATELET VOLUME (test code=MPV) 8.80 fL 7.0-10.5 NEUTROPHIL % (test code=NT%) 63.1 % 40-76 LYMPHOCYTE % (test code=LY%) 19.1 % 20.5-51.1 MONOCYTE % (test code=MO%) 13.8 % 1.7-9.3 EOSINOPHIL % (test code=EO%) 3.8 % 0.0-6.0 BASOPHIL % (test code=BA%) 0.2 % 0.0-2.0 NEUTROPHIL # (test code=NT#) 5.54 K/mm3 1.8-7.6 LYMPHOCYTE # (test code=LY#) 1.7 K/mm3 0.6-3.2 MONOCYTE # (test code=MO#) 1.2 K/mm3 0.3-1.1 EOSINOPHIL # (test code=EO#) 0.3 K/mm3 0.0-0.4 BASOPHIL # (test code=BA#) 0.0 K/mm3 0.0-0.1 MANUAL DIFF REQUIRED (test code=MDIFF) NO DIFF/SCN CRITERIA [id number] 17:57:00 RUN DATE: 09/26/18 [facility] - LAB *LIVE* PAGE 1 RUN TIME: 1757 Specimen Inquiry RUN USER: INTERFACE PATIENT: MARICHUY MONTANEZ LOC: WONG U #: [id number] AGE/SX: 88/F ROOM: [facility] RE09/22/18SEJAL DR: Manny Moser III : [birth year] BED: 1 DIS: 09/23/18 STATUS: DIS IN TLOC: SPEC #: [id number] RECD: 09/25/18 STATUS: DARRICK NARAYAN #: [id number] CHAO: 09/22/[address]: Manny Moser III, MD ENTERED: 09/25/18 SP TYPE: SURG OTHR DR: Keo Romero MD ORDERED: SURG PATH LVL 1, SURG PATH LVL 4 COPIES TO: Keo Romero MD [address] [place], [place] [place] [address] [place] [address] HISTOLOGY: TISSUE ID BLK PCS VALERIE LEV PROCEDURE DISPOSITION _ ___ ___ ___ ___ NASAL SEPTUM, N A 1 1 NASAL SEPTUM, N B 1 1 PROCEDURES: SURGPATH LVL 1 (09/25/18) SURG PATH LVL 4 () TISSUES: A. NASAL SEPTUM, NOS - SEPTUM B. 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 Nasal septum, septoplasty: FRAGMENTS OF BONE AND CARTILAGE (GROSS DIAGNOSIS ONLY) B. Sinus, endoscopic sinus surgery: MILD CHRONIC INFLAMMATION CONTINUED ON NEXT PAGE RUN DATE: 09/26/18 [facility] - LAB *LIVE* PAGE 2 RUN TIME: 1757 Specimen Inquiry RUN USER: INTERFACE SPEC #: [facility]:[id number] PATIENT: MARICHUY MONTANEZ #[id number] (Continued) GROSS DESCRIPTION A. Septum. Received in formalin are multiple irregular fragments of cartilage and bones, 4.0 x 2.5 x 0.5 cm in aggregate. The specimen is photographed for gross identification only. B. Sinus contents. Received in formalin are irregular fragments of andre-brown soft tissue admixed with dark brown blood clots, 4.0 x 3.5 x 1.2 cm in aggregate.Medical Consultant sections submitted as B. ba/nr Grossing performed at [facility] Pathology, [address] [facility], [address], [place] [address]. Seating Upholsterer: Adan Khan M.D. MICROSCOPIC DESCRIPTION A. Septum. No sections submitted. Gross diagnosis only. B. Sinus contents. Sections demonstrate respiratory mucosa with underlying glands and mild chronic inflammation. No dysplasia or malignancy is identified. Occasional fragments of calcified bone are also identified.-------- ---- Signed SIGNATURE ON FILE Julien Cox 09/26/18 1757 END OF REPORT - CT MAXIFAC W/O [id number] 09:18:00 Name: MARICHUY MONTANEZ [facility] : 1930 Age/S: 88 / F [address] Unit #: [id number] Loc: [place] [address] Phys: Manny Moser III, MD Acct: [id number] Dis Date: Status : [facility] PHONE #: [phone] Exam Date: 09/22/2018 0910 FAX #: Reason: CHRONICSINUSITIS EXAMS: CPT: [id number] CT MAXIFAC W/O CONTRAST 00337 Examination: Sinus CT without contrast Location code: S17 Comparison: None Technique: Thin section axial images were obtained through the sinuses followed by coronal and sagittal reformations. All CT scans are performed using radiation dose reduction technique. Technical factors are evaluated and adjusted to insure appropriate moderation of exposure. Automated dose management technology is applied to adjust the radiation dose to minimize exposure while achieving a diagnostic quality image. Discussion: Clinical history is remarkable for chronic sinusitis, nasal septal deformity. Nasal bones are intact. Nasal septum minimally bows to the right. There is complete opacification of eithermaxillary sinus, opacification of the ostiomeatal complex bilaterally. There is completeopacification of the frontal sinuses, entire ethmoid air cells, and frontoethmoidal recess. There is partial opacification of the air passages adjacent to the middle turbinates, inferior turbinate bilaterally are of normal size with adequate air passage at that level. Mastoid air cells and middle ears are clear. There is chronic mucoperiosteal thickening with complete opacification of the sphenoid sinus bilaterally. Impression: 1. There is complete opacification of either maxillary sinus, ethmoid aircells, frontal sinuses and sphenoid sinus. 2. Nasal septum minimally bows the right. at 0918 Reported and signed by: Lg Callejas M.D. PAGE 1 Signed Report (CONTINUED) Name: MARICHUY MONTANEZ [facility] : 1930 Age/S: 88 / F [address] Unit #: [id number] Loc: [place] [address] Phys: Manny Moser III, MD Acct: [id number] Dis Date: [place] [facility] [place] #: [phone] Exam Date: 10/2018 0910 FAX #: Reason: CHRONIC SINUSITIS EXAMS: CPT: [id number] CT MAXIFAC W/O CONTRAST 53059 <Continued> CC: Keo Romero MD; Manny Moser III, MD Technologist:RT Samra(R)(CT) CTDI: DLP: Trnscb Date/Time: 09/22/2018 (09) [email or web address] Orig Print D/T: S : 09/22/2018 (920) PAGE 2 Signed Report- XR CHEST 2 [id number] 18:37:00 Name: MARICHUY MONTANEZ [facility] : 1930 Age/S: 88 / F [address] Unit #: [id number] Loc: [place] [address] Phys: Manny Moser III, MD Acct: [id number] Dis Date: Status: PRE [place] PHONE #: [phone] Exam Date: 09/21/2018 1625 FAX #: Reason: PREOP EXAMS: CPT: [id number] XR CHEST 2 V 26257 Fluoro Time: DAP (Gy m2): Air Kerma (mGy): PA AND LATERAL VIEWS OF THE CHEST LOCATION: R16 CLINICAL HISTORY: Preop exam. COMPARISON: No previous exam available. FINDINGS: The cardiomediastinal shadow is within normal limits. Atherosclerotic calcifications are noted in the aorta. The lungs show mild hyperaeration, compatible with mild COPD. They are otherwise grossly clear. No pleural fluids. Degenerative bony changes are noted. No acute bony abnormality is found. A hiatal hernia is present. IMPRESSION: No radiographic evidence of acute cardiopulmonary disease process. at 1837 Reported and signed by: Shelia Billy M.D. CC: Keo Smith MD; Manny Moser III, MD PAGE 1 Signed Report Name: MARICHUY MONTANEZ [place] : 1930 Age/S:88 / F [address] Unit #: [id number] Loc: [place] [address] Phys: Manny Moser III, MD Acct: [id number] Dis Date: Status: PRE SDC PHONE #: [phone] Exam Date: 09/21/2018 1629 FAX #: Reason: PREOP EXAMS: CPT: [id number] XR CHEST 2 V 33796 Fluoro Time: DAP (Gy m2): Air Kerma (mGy): <Continued> Technologist: Douglas Kramer RT(R)(CT) Trnscb Date/Time: 2018 (1837) [email or web address] Orig Print D/T: S: 09/21/2018 (1840) PAGE 2 Signed ReportCOMPREHENSIVE METABOLIC [id number] 16:50:00 Test Item Value Reference Range Comments SODIUM (test code=NA) 137 mmol/L 134-147 POTASSIUM (test code=K) 4.1 mmol/L 3.4-5.0 CHLORIDE (test code=CL) 103 mmol/L 100-108 CARBON DIOXIDE (test code=CO2) 26 mmol/L 21-32 ANION GAP (test code=GAP) 8.0 GAP calc 4.0-15.0 GLUCOSE (test code=GLU) 111 MG/DL 70-110 BLOOD UREA NITROGEN (test code=BUN) 23 MG/DL 7-18 GLOMERULAR FILTRATION RATE (test >=60 max estimate estGFR >60 code=GFR) CREATININE (test code=CREAT) 0.9 MG/DL 0.6-1.0 TOTAL PROTEIN (test code=PROT) 7.0 G/DL 6.4-8.2 ALBUMIN (test code=ALB) 3.0 G/DL 3.4-5.0 GLOBULIN (test code=GLOB) 4.0 GM/dL ALBUMIN/GLOBULIN RATIO (test 0.8 RATIO 1.2-2.2 code=A/G) CALCIUM (test code=CA) 8.6 MG/DL 8.5-10.1 BILIRUBIN TOTAL (test code=BILT) 0.50 MG/DL 0.2-1.2 SGOT/AST (test code=AST) 21 Unit/L 15-37 SGPT/ALT (test code=ALT) 15 Unit/L 12-78 ALKALINE PHOSPHATASE TOTAL (test 131 Unit/L 45-117 code=ALKP) PROTHROMBIN [id number] 16:41:00 Test Item Value Reference Range Comments PT PATIENT (test code=PTP) 13.4 SECONDS 9.3-12.9 INTERNATIONAL NORMAL RATIO (test code=INR) 1.16 INR Unit 0.8-1.2 THROMBOPLASTIN TIME [id number] 16:41:00 Test Item Value Reference Range Comments THROMBOPLASTIN TIME PARTIAL (test code=PTT) 32.8 SECONDS 26-35 CBC W/AUTO [id number] 16:40:00 Test Item Value Reference Range Comments WHITE BLOOD CELL (test code=WBC) 8.2 K/mm3 3.5-11.0 RED BLOOD CELL (test code=RBC) 4.52 M/mm3 4.70-6.10 HEMOGLOBIN (test code=HGB) 13.2 G/DL 10.4-14.9 HEMATOCRIT (test code=HCT) 40.2 % 31.5-44.1 MEAN CELL VOLUME (test code=MCV) 88.9 Fl 84.5-98.6 MEAN CELL HGB (test code=MCH) 29.2 pg 27.0-34.2 MEAN CELL HGB CONCETRATION (test code=MCHC) 32.8 G/DL 31.5-34.0 RED CELL DISTRIBUTION WIDTH (test code=RDW) 13.3 SD 11.5-14.5 PLATELET COUNT (test code=PLT) 267.0 K/mm3 150-450 MEAN PLATELET VOLUME (test code=MPV) 9.30 fL 7.0-10.5 NEUTROPHIL % (test code=NT%) 68.2 % 40-76 LYMPHOCYTE % (test code=LY%) 17.9 % 20.5-51.1 MONOCYTE % (test code=MO%) 11.0 % 1.7-9.3 EOSINOPHIL % (test code=EO%) 2.8 % 0.0-6.0 BASOPHIL % (test code=BA%) 0.1 % 0.0-2.0 NEUTROPHIL # (test code=NT#) 5.56 K/mm3 1.8-7.6 LYMPHOCYTE # (test code=LY#) 1.5 K/mm3 0.6-3.2 MONOCYTE # (test code=MO#) 0.9 K/mm3 0.3-1.1 EOSINOPHIL # (test code=EO#) 0.2 K/mm3 0.0-0.4 BASOPHIL # (test code=BA#) 0.0 K/mm3 0.0-0.1 MANUAL DIFF REQUIRED (test code=MDIFF) NO DIFF/SCN CRITERIA
== END 2018-12-15 10:03 | disposition home or self-care (01) ==
LOC: OR 06:35
PROVIDERS: ATTEND Surgery
PROC: 0HB6XZZ Excision of Back Skin, External Approach (ICD-10-PCS; 2018-12-15)
PROC: 0JB70ZZ Excision of Back Subcutaneous Tissue and Fascia, Open Approach (ICD-10-PCS; principal; 2018-12-15 07:30)
DX: L72.3 Sebaceous cyst (principal); L91.8 Other hypertrophic disorders of the skin; I10 Essential (primary) hypertension; Z88.2 Allergy status to sulfonamides; Z88.6 Allergy status to analgesic agent
CPT/HCPCS: 85025; 80048; 36415; 88304; 11406; 11200; J2704; J3010; J0690; J7120; J2405

== ENCOUNTER 2019-03-13 06:32 | Day surgery (SDC) | payer OTHER ==
[2019-03-12 15:31] LABS: Basophils % 0.3 % (0-1.3); Hematocrit 38.6 % (36.0-45.0); Lymphocytes % 13.3 % (15.3-44.8); MPV 7.4 fL (7.6-11.3); RBC Red Blood Cell Count 4.65 M/uL (3.86-4.86)
[2019-03-12 15:43] LABS: Potassium 4.6 mmol/L (3.5-5.1)
--- NOTE | 2019-03-12 15:54 | RAD REPORT ---
EXAM DESCRIPTION: RAD - Chest Pa And Lat (2 Views) - 03/12/2019 3:47 pm CLINICAL HISTORY: pre op for surgery Chest pain. COMPARISON: Chest Single View dated 04/18/2018; Chest Single View dated 04/14/2018; Chest Single View da hardik 10/04/2015; CHEST SINGLE VIEW dated 07/01/2013 FINDINGS: Emphysematous changes are present throughout the lungs. The heart is normal in size. Moder ate hiatal hernia. IMPRESSION: Prominent emphysema is present.
--- OUTSIDE RECORDS SUMMARY | 2019-03-13 06:36 | XMS REPORT ---
:1930 Author [facility] Address [address] [place] [address] Care Team Providers Name Role Phone Unavailable [...] Comments SURG 2018-11-27 RUN 14:40:00 DATE: 11/27/[address] [facility] - LAB PAGE 1 RUN TIME: 1440 Specimen Inquiry RUN USER: INTERFACE JUNIOR ENT: MARICHUY MONTANEZ LOC: WONG U #: [id number] AGE/SX: 88/F ROOM: [facility] RE11/24/18REG DR: Manny Moser III : [birth year] BED: 1 DIS: 11/25/18 STATUS: DIS Patrick TLOC: SPEC #: [id number] RECD: 11/24/18 STATUS: DARRICK REQ #: [id number] CHAO: 11/24/[address]: Manny Moser III, MD ENTERED: 11/24/18 SP TYPE: SURG OTHR DR: Keo Romero MD ORDERED: SURG PATH LVL 3 COPIES TO: Keo Romero MD [address] [place], [place] [address] [place] [address] [facility] [address] [place] [id number] HISTOLOGY: TISSUE ID BLK PCS VALERIE LEV PROCEDURE DISPOSITION __ ____ ___ ___ ___ NASAL TURBINATE A 1 1 PROCEDURES: SURG PATH LVL 3 (11/24/18) TISSUES: A. NASAL TURBINATE, NOS - SINUS AND TURBINATES CLINICAL HISTORY SINUSITIS 4 SINUSES; PANSINUSITIS -J324 CPT CODES CPT CODE(S): 78048 , , , , , , FINAL [...] The multiple small fragments are grossly unremarkable. Charge Nurse sections of the rubbery tissue with bone CONTINUED ON NEXT PAGE RUN DATE: 11/27/18 [facility] PAGE 2 RUN TIME: 1440 Specimen Inquiry RUN USER: INTERFACE SPEC #: [facility]:[id number] PATIENT: MARICHUY MONTANEZ # [id number] (Continued) ------- GROSS DESCRIPTION (Continued) submitted following labeled A1, multiple small soft tissue fragments in A2. ba/nr Grossing performed at [facility] Pathology, [facility] [facility], [address], [place] [id number]. Workers Compensation Adjuster: Adan Khan M.D. MICROSCOPIC DESCRIPTION Sinus and [...] code=INR) 1.11 INR Unit 0.8-1.2 THROMBOPLASTIN TIME [id number] 07:03:00 Test Item Value Reference Range Comments THROMBOPLASTIN TIME PARTIAL (test code=PTT) 31.9 SECONDS 26-35 BASIC METABOLIC [id number] 06:51:00 Test Item Value Reference Range Comments [...] (test code=CA) 8.8 MG/DL 8.5-10.1 BASIC METABOLIC [id number] 06:44:00 Test Item Value Reference Range Comments [...] (test code=CA) 8.8 MG/DL 8.5-10.1 CBC W/AUTO [id number] 06:40:00 Test Item Value Reference Range Comments [...] DIFF REQUIRED (test code=MDIFF) NO DIFF/SCN CRITERIA [id number] 17:57:00 RUN DATE: 09/26/18 [facility] - LAB *LIVE* PAGE 1 RUN TIME: 1757 Specimen Inquiry RUN USER: INTERFACE PATIENT: MARICHUY MONTANEZ LOC: WONG Robertson #: [id number] AGE/SX: 88/F ROOM: [facility] RE09/22/18REG DR: Manny Moser III : [birth year] BED: 1 DIS: 09/23/18 STATUS: DIS IN TLOC: SPEC #: [id number] RECD: 09/25/18 STATUS: DARRICK REQ #: [id number] CHAO: 09/22/[address]: Manny Moser III, MD ENTERED: 09/25/18 SP TYPE: SURG OTHR DR: Keo Romero MD ORDERED: SURG PATH LVL 1, SURG PATH LVL 4 COPIES TO: Keo Romero MD [address] [place] [address] [place] [address] [facility] [address] [place] [address] HISTOLOGY: TISSUE ID BLK PCS VALERIE LEV PROCEDURE DISPOSITION _ ___ ___ ___ ___ NASAL SEPTUM, N A 1 1 NASAL SEPTUM, N B 1 1 PROCEDURES: SURGPATH LVL 1 (09/25/18) SURG PATH LVL 4 () TISSUES: A. NASAL SEPTUM, NOS - SEPTUM B. 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 Nasal septum, septoplasty: FRAGMENTS OF BONE AND CARTILAGE (GROSS DIAGNOSIS ONLY) B. Sinus, endoscopic sinus surgery: MILD CHRONIC INFLAMMATION CONTINUED ON NEXT PAGE RUN DATE: 09/26/18 [facility] - LAB *LIVE* PAGE 2 RUN TIME: 1756 Specimen Inquiry RUN USER: INTERFACE SPEC #: [facility]:[id number] PATIENT: MARICHUY MONTANEZ #[id number] (Continued) GROSS DESCRIPTION A. Septum. Received in formalin are multiple irregular fragments of cartilage and bones, 4.0 x 2.5 x 0.5 cm in aggregate. The specimen is photographed for gross identification only. B. Sinus contents. Received in formalin are irregular fragments of andre-brown soft tissue admixed with dark brown blood clots, 4.0 x 3.5 x 1.2 cm in aggregate.Charge Nurse sections submitted as B. ba/nr Grossing performed at [facility] Pathology, [address] [place] [address], [address], [place] [address]. Workers Compensation Adjuster: Adan Khan M.D. MICROSCOPIC DESCRIPTION A. Septum. No sections submitted. Gross diagnosis only. B. Sinus contents. Sections demonstrate respiratory mucosa with underlying glands and mild chronic inflammation. No dysplasia or malignancy is identified. Occasional fragments of calcified bone are also identified.-------- ---- Signed SIGNATURE ON FILE Julien Cox 09/26/18 1757 END OF REPORT - CT MAXIFAC W/O [id number] 09:18:00 Name: MARICHUY MONTANEZ [facility] : 1930 Age/S: 88 / F [address] Unit #: [id number] Loc: [place] [address] Phys: Manny Moser III, MD Acct: [id number] Dis Date: Status : [facility] PHONE #: [phone] Exam Date: 09/22/2018 0910 FAX #: Reason: CHRONICSINUSITIS EXAMS: CPT: [id number] CT MAXIFAC W/O CONTRAST 80469 Examination: Sinus CT without contrast Location code: [...] 1 Signed Report (CONTINUED) Name: MARICHUY MONTANEZ [facility] : 1930 Age/S: 88 / F [address] Unit #: [id number] Loc: [place] [address] Phys: Manny Moser III, MD Acct: [id number] Dis Date: Status: [place] [facility] [place] #: [phone] Exam Date: 10/2018 0910 FAX #: Reason: CHRONIC SINUSITIS EXAMS: CPT: [id number] CT MAXIFAC W/O CONTRAST 45197 <Continued> CC: Keo Romero MD; Manny Moser III, MD Technologist:Raghu Jones, (R)(CT) CTDI: DLP: Trnscb Date/Time: 09/22/2018 (917) [email or web address] Orig Print D/T: S : 09/22/2018 (920) PAGE 2 Signed Report- XR CHEST 2 [id number] 18:37:00 Name[facility] [place] [facility] 1930 Age/S: 88 / F [address] Unit #: [id number] Loc: [place] [address] Phys: Manny Moser III, MD Acct: [id number] Dis Date: Status: PRE SDC PHONE #: [phone] Exam Date: 09/21/2018 1625 FAX #: Reason: PREOP EXAMS: CPT: [id number] XR CHEST 2 V 06594 Fluoro Time: DAP (Gy m2): Air Kerma [...] PAGE 1 Signed Report Name: MARICHUY MONTANEZ [place] : 1930 Age/S:88 / F [address] Unit #: [id number] Loc: [place] [address] Phys: Manny Moser III, MD Acct: [id number] Dis Date: Status: PRE SDC PHONE #: [phone] Exam Date: 09/21/2018 1625 FAX #: Reason: PREOP EXAMS: CPT: [id number] XR CHEST 2 V 42242 Fluoro Time: DAP (Gy m2): Air Kerma (mGy): <Continued> Technologist: Douglas Kramer RT(R)(CT) Trnscb Date/Time: 2018 (183) [email or web address] Orig Print D/T: S: 09/21/2018 (1840) PAGE 2 Signed ReportCOMPREHENSIVE METABOLIC [id number] 16:50:00 Test Item Value Reference Range Comments [...] TOTAL (test 131 Unit/L 45-117 code=ALKP) PROTHROMBIN [id number] 16:41:00 Test Item Value Reference Range Comments PT PATIENT (test code=PTP) 13.4 SECONDS 9.3-12.9 INTERNATIONAL NORMAL RATIO (test code=INR) 1.16 INR Unit 0.8-1.2 THROMBOPLASTIN TIME [id number] 16:41:00 Test Item Value Reference Range Comments THROMBOPLASTIN TIME PARTIAL (test code=PTT) 32.8 SECONDS 26-35 CBC W/AUTO [id number] 16:40:00 Test Item Value Reference Range Comments [...]
[2019-03-13] MEDS ORDERED: Ringers Lactate 1,000 ML IV ONE (06:51)
[2019-03-13] MEDS ORDERED: CEFAZOLIN/SWI 1gm 1 GM/10 ML SYR ONE (06:52)
[2019-03-13] MEDS ORDERED: propofoL 200 MG/20 ML VIAL IV ONE (07:04)
[2019-03-13] MEDS ORDERED: FENTANYL CITR 100 MCG/2 ML ONE (07:04)
[2019-03-13] MEDS ORDERED: LIDOCAINE 1% MPF 2 ML AMPULE ONE (07:08)
--- NOTE | 2019-03-13 10:19 | OP ---
Date of Procedure: 03/13/2019 Surgeon: Ga Hilliard MD Automation Technician: BROOKS Parra. Preoperative Diagnosis: An inflamed sebaceous cyst, left shoulder. Postoperative Diagnosis: An inflamed sebaceous cyst, left shoulder. Procedure: Wide excision of left shoulder mass, 6 x 3 cm with layered closure. Length of closure 6 cm. Estimated Blood Loss: Minimal. Estimated Blood Loss: Minimal. Specimen: Left shoulder cyst. Finding: As above. Anesthesia: MAC. Complications: None. Disposition: Patient tolerated the procedure, in stable condition, taken to Recovery in good general condition. Procedure In Detail: Patient was brought to the OR and placed in supine position. MAC anesthesia wa s begun. The patient was prepped and draped in usual sterile fashion. Lidocaine 1% infiltrated loca lly. A 15-blade was used to make a 6 x 3 cm incision. The entire cyst was removed. The wall was ex cised down through the deep subcutaneous tissue, appeared to be slightly attached to the muscle and w as excised in total and then sent to Pathology. Wound irrigated. Bleeding controlled with cautery. Flaps were created. 2-0 chromic was used to approximate subcutaneous tissue and 4-0 nylon was used to loosely reapproximate the skin. Sterile dressing was applied. Patient was awakened and taken to Recovery in good general condition. Discharge Note: The patient will go to day surgery and home when stable. Disposition: Home. Condition: Stable. Discharge Instructions: Resume home medications and diet. Activity as tolerated. Remove outer dres sing in 2 days. Shower. Keep wound clean and dry. Follow up in my office in 2 weeks. Call for stephen ointment. Tylenol No. 3 one tablet p.o. q.4 p.r.n. pain. Clindamycin and Z-Emeterio are given. /MODL Voice ID: [id number] Report ID: [id number]
[2019-03-13 11:40] VITALS: BP 112/61; TEMP 97.1; O2SAT 100
--- NOTE | 2019-03-13 15:58 | EKG ---
Test Date: 2019-03-12 Test Time: 15:29:58 Automobile Parker: SUSI MEASUREMENT RESULTS: Intervals: Rate: 77 CO: 246 QRSD: 70 QT: 392 QTc: 443 [place]: P: 61 CO: 246 QRS: 54 T: 100 INTERPRETIVE STATEMENTS: Sinus rhythm with 1st degree AV block Low voltage QRS Cannot rule out Anterior infarct, age undetermined T wave abnormality, consider lateral ischemia Abnormal ECG Compared to ECG 04/19/2018 15:06:59 Low QRS voltage now present T-wave abnormality now present Possible ischemia now present Myocardial infarct finding still present Electronically Signed On 03-13-19 15:52:32 DIRECTOR OF MOBILE MARKETING by Antonio Lang
== END 2019-03-13 10:22 | disposition home or self-care (01) ==
LOC: OR 06:32
PROVIDERS: ATTEND Surgery
PROC: 0JBF0ZZ Excision of Left Upper Arm Subcutaneous Tissue and Fascia, Open Approach (ICD-10-PCS; principal; 2019-03-13 07:30)
DX: L72.3 Sebaceous cyst (principal)
CPT/HCPCS: 36415; 71046; 80048; 85025; 88304; 93005; J0690; J2001; J2704; J3010; J7120